=== PATIENT | female | born 1980 | race Caucasian/White ===

== ENCOUNTER 2017-07-17 17:14 | Emergency (ER) | payer OTHER ==
[~2017-07-17] VITALS: Ht 167.6 cm; Wt 139.3 kg
[~2017-07-17 17:14] MED LIST: ADVIN50050 INH; ALBUAER2 INH; CLX20 PO; DOXEPIN PO; FLX10 PO; GABA1CAP5 PO; METO25TA56 PO; PROM25TA PO; QUET1TAB34 PO; SYN125 PO
[2017-07-17 17:19] VITALS: TEMP 36.4; Ht 167.6 cm; Wt 139.3 kg
--- NOTE | 2017-07-17 18:07 | DIAGNOSTIC IMAGING REPORT ---
ABD/PELVIS NO IV OR ORAL CONT CT DOSE: 1118.87 mGycm HISTORY: Flank pain r flank pain TECHNIQUE: Multiaxial CT images of the abdomen and pelvis were performed without contrast. A dose lowering technique was utilized adhering to the principles of ALARA. COMPARISON STUDY: 10/27/2011 FINDINGS: Lung bases are clear. Mild stable hepatomegaly. Prior cholecystectomy. Spleen is uniform. Kidneys negative for calcification or hydronephrosis. The bowel pattern is nonobstructive. Prior appendectomy. Improved postoperative scar tissue of the periumbilical and lower anterior abdominal region. No significant free fluid within the abdomen or pelvis. Prior complete hysterectomy. IMPRESSION: No significant abnormality identified within the abdomen or pelvis. Mild stable hepatomegaly. No evidence for an obstructing urinary tract calculus. The above report was generated using voice recognition software. It may contain grammatical, syntax or spelling errors. Electronically signed by: Anjel Mckee M.D. 07/17/2017 6:06 PM Dictated Date/Time: 07/17/2017 6:01 PM
[2017-07-17] MEDS ORDERED: SYN175 PO (18:14)
[2017-07-17] MEDS ORDERED: VNTHFA/IN INH (18:14)
[2017-07-17] MEDS ORDERED: ADVIN50050 PO (18:14)
[2017-07-17] MEDS ORDERED: ZOLP10TA PO (18:14)
[2017-07-17 18:52] LABS: BASO % 0.5 %; BASO ABS # 0.06 K/uL (0-0.2); COMPLETE YES; EOS % 2.4 %; HEMATOCRIT 40.3 % (37-47); IG% 0.5 %; LYMPH % 34.4 %; LYMPH ABS # 3.79 K/uL (1.2-3.4); MEAN CELL VOLUME 85.7 fL (80-100); MEAN CORPUSCULAR HEMOGLOBIN 28.1 pg (25-34); MEAN CORPUSCULAR HGB CONC 32.8 g/dl (32-36); MEAN PLATELET VOLUME 9.7 fL (7.4-10.4); MONO % 8.1 %; NEUT % 54.1 %; PLATELET COUNT 395 K/uL (130-400); WHITE BLOOD COUNT 11.03 K/uL (4.8-10.8)
[2017-07-17 18:58] LABS: MANUAL MICROSCOPIC REQUIRED? NO; REVIEW REQ? NO; URINE APPEARANCE CLEAR (CLEAR); URINE BILIRUBIN NEG (NEG); URINE COLOR YELLOW; URINE EPITHELIAL CELL AUTO >30 /lpf (0-5); URINE NITRITE NEG (NEG); URINE SPECIFIC GRAVITY 1.028 (1.000-1.030); UROBILINOGEN NEG (NEG); ZZUR CULT IF INDIC CLEAN CATCH NO
[2017-07-17 19:00] VITALS: BP 134/91; PULSE 70; O2SAT 96
[2017-07-17 19:15] LABS: ALT/SGPT 17 U/L (12-78); BLOOD UREA NITROGEN 23 mg/dl (7-18); BUN/CREATININE RATIO 26.6 (10-20); CALCIUM 9.3 mg/dl (8.5-10.1); CARBON DIOXIDE 23 mmol/L (21-32); CHLORIDE 104 mmol/L (98-107); CREATININE 0.86 mg/dl (0.60-1.20); GLUCOSE 77 mg/dl (70-99); SODIUM 135 mmol/L (136-145)
[2017-07-17 19:18] LABS: ALKALINE PHOSPHATASE 95 U/L (45-117); AST/SGOT 10 U/L (15-37)
--- NOTE | 2017-07-17 20:21 | EMERGENCY ROOM VISIT NOTE ---
History Report prepared by Nidhi: Lv Jimenes Under the Supervision of: Dr. Yayo Gutierrez D.O. First contact with patient: 17:24 Chief Complaint: FLANK PAIN Stated Complaint: RT SIDE PAIN,VOMITING History of Present Illness The patient is a 37 year old female who presents to the Emergency Room with complaints of right sided flank pain that began early this morning. She rates her pain an 8/10 in severity started this morning at 4 AM. She has a past medical history of kidney stones, a hysterectomy, a cholecystectomy, and an appendectomy. She is also experiencing nausea, vomiting, and burning with urination. Pt denies headache, change in vision, fevers, chest pain, shortness of breath, diarrhea, gross blood in her urine, and melena. She was last here in the ED for flank pain in 2010. The patient states that her friend brought her to [facility] because she called [facility] and they told her that they were "full." She agreed to have the [facility] records reviewed. Per those records, the patient was at [facility] today at 13:35 for knee pain. Source of History: patient Onset: earlier this morning Position: other (Right flank) Symptom Intensity: 8/10 Quality: sharp Timing: constant Associated Symptoms: + nausea, + vomiting, + urinary symptoms, No fevers, No headache, No chest pain, No SOB, No melena, No diarrhea Review of Systems See HPI for pertinent positives & negatives. A total of 10 systems reviewed and were otherwise negative. Past Medical & Surgical Medical Problems: (1) Kidney stones Surgical Problems: (1) H/O: hysterectomy (2) History of appendectomy (3) Hx of cholecystectomy Family History Patient reports no known family medical history. Social History Smoking Status: Never Smoker Smokeless Tobacco Use: No Alcohol Use: none Drug Use: none Occupation Status: disabled Current/Historical Medications Scheduled Albuterol Hfa (Ventolin Hfa), 2-4 PUFFS INH Q6H Fluticasone Prop/Salmeterol (Advair Diskus 500-50 Mcg/Dose), 1 PUFF PO BID Levothyroxine Sodium (Synthroid), 175 MCG PO QAM Zolpidem Tartrate (Ambien), 10 MG PO HS Allergies Coded Allergies: Morphine (Verified Allergy, Severe, HIVES,SOB, 1/5/11) TAKES PERCOCET AT HOME Ibuprofen (Verified Allergy, Intermediate, HIVES, 11/10/10) Ketorolac (Unverified Allergy, Mild, SWELLING, 11/10/10) Prochlorperazine (Verified Allergy, Mild, RASH, 11/10/10) Quinolones (Verified Allergy, Unknown, 11/10/10) Physical Exam Vital Signs Date Time Temp Pulse Resp B/P (MAP) Pulse Ox O2 Delivery O2 Flow Rate FiO2 07/17/17 19:00 70 20 134/91 96 Room Air 07/17/17 17:19 36.4 73 20 146/77 93 Room Air Physical Exam GENERAL: alert, disheveled and unkempt appearing, no distress, non-toxic EYE EXAM: normal conjunctiva OROPHARYNX: no exudate, no erythema, lips, buccal mucosa, and tongue normal and mucous membranes are moist NECK: supple, no nuchal rigidity, no adenopathy, non-tender LUNGS: Clear to auscultation. Normal chest wall mechanics HEART: no murmurs, S1 normal and S2 normal ABDOMEN: abdomen soft, non-tender, normo-active bowel sounds, no masses, no rebound or guarding. BACK: Back is symmetrical on inspection and there is no deformity, no midline tenderness, no CVA tenderness. SKIN: no rashes and no bruising UPPER EXTREMITIES: upper extremities are grossly normal. LOWER EXTREMITIES: No pitting edema. NEURO EXAM: Normal sensorium, cranial nerves II-XII grossly intact, normal speech, no gross weakness of arms, no gross weakness of legs. Medical Decision & Procedures ER Provider Diagnostic Interpretation: Radiology results as stated below per my review and the radiologist's interpretation: ABD/PELVIS NO IV OR ORAL CONT CT DOSE: 1118.87 mGycm HISTORY: Flank pain r flank pain TECHNIQUE: Multiaxial CT images of the abdomen and pelvis were performed without contrast. A dose lowering technique was utilized adhering to the principles of ALARA. COMPARISON STUDY: 10/27/2011 FINDINGS: Lung bases are clear. Mild stable hepatomegaly. Prior cholecystectomy. Spleen is uniform. Kidneys negative for calcification or hydronephrosis. The bowel pattern is nonobstructive. Prior appendectomy. Improved postoperative scar tissue of the periumbilical and lower anterior abdominal region. No significant free fluid within the abdomen or pelvis. Prior complete hysterectomy. IMPRESSION: No significant abnormality identified within the abdomen or pelvis. Mild stable hepatomegaly. No evidence for an obstructing urinary tract calculus. The above report was generated using voice recognition software. It may contain grammatical, syntax or spelling errors. Electronically signed by: Anjel Mckee M.D. 07/17/2017 6:06 PM Dictated Date/Time: 07/17/2017 6:01 PM Laboratory Results 07/17/17 18:42 Red Blood Count 4.70, Mean Corpuscular Volume 85.7, Mean Corpuscular Hemoglobin 28.1, Mean Corpuscular Hemoglobin Concent 32.8, Mean Platelet Volume 9.7, Neutrophils (%) (Auto) 54.1, Lymphocytes (%) (Auto) 34.4, Monocytes (%) (Auto) 8.1, Eosinophils (%) (Auto) 2.4, Basophils (%) (Auto) 0.5, Neutrophils # (Auto) 5.98, Lymphocytes # (Auto) 3.79, Monocytes # (Auto) 0.89, Eosinophils # (Auto) 0.26, Basophils # (Auto) 0.06 07/17/17 18:42 Test 07/17/17 17:50 07/17/17 18:42 Urine Color YELLOW Urine Appearance CLEAR (CLEAR) Urine pH 5.0 (4.5-7.5) Urine Specific [place] 1.028 (1.000-1.030) Urine Protein NEG (NEG) Urine Glucose (UA) NEG (NEG) Urine Ketones NEG (NEG) Urine Occult Blood 3+ (NEG) Urine Nitrite NEG (NEG) Urine Bilirubin NEG (NEG) Urine Urobilinogen NEG (NEG) Urine Leukocyte Esterase NEG (NEG) Urine WBC (Auto) 1-5 /hpf (0-5) Urine RBC (Auto) >30 /hpf (0-4) Urine Hyaline Casts (Auto) 1-5 /lpf (0-5) Urine Epithelial Cells (Auto) >30 /lpf (0-5) Urine Bacteria (Auto) NEG (NEG) Urine Test NEG (NEG) White Blood Count 11.03 K/uL (4.8-10.8) Red Blood Count 4.70 M/uL (4.2-5.4) Hemoglobin 13.2 g/dL (12.0-16.0) Hematocrit 40.3 % (37-47) Mean Corpuscular Volume 85.7 fL (80-100) Mean Corpuscular Hemoglobin 28.1 pg (25-34) Mean Corpuscular Hemoglobin Concent 32.8 g/dl (32-36) Platelet Count 395 K/uL (130-400) Mean Platelet Volume 9.7 fL (7.4-10.4) Neutrophils (%) (Auto) 54.1 % Lymphocytes (%) (Auto) 34.4 % Monocytes (%) (Auto) 8.1 % Eosinophils (%) (Auto) 2.4 % Basophils (%) (Auto) 0.5 % Neutrophils # (Auto) 5.98 K/uL (1.4-6.5) Lymphocytes # (Auto) 3.79 K/uL (1.2-3.4) Monocytes # (Auto) 0.89 K/uL (0.11-0.59) Eosinophils # (Auto) 0.26 K/uL (0-0.5) Basophils # (Auto) 0.06 K/uL (0-0.2) RDW Standard Deviation 43.4 fL (36.4-46.3) RDW Coefficient of Variation 13.9 % (11.5-14.5) Immature Granulocyte % (Auto) 0.5 % Immature Granulocyte # (Auto) 0.05 K/uL (0.00-0.02) Anion Gap 8.0 mmol/L (3-11) Est Creatinine Clear Calc Drug Dose 129.1 ml/min Estimated GFR () 100.0 Estimated GFR (Non- 86.3 BUN/Creatinine Ratio 26.6 (10-20) Calcium Level 9.3 mg/dl (8.5-10.1) Total Bilirubin 0.4 mg/dl (0.2-1) Direct Bilirubin < 0.1 mg/dl (0-0.2) Aspartate Amino Transf (AST/SGOT) 10 U/L (15-37) Alanine Aminotransferase (ALT/SGPT) 17 U/L (12-78) Alkaline Phosphatase 95 U/L (45-117) Total Protein 8.3 gm/dl (6.4-8.2) Albumin 4.0 gm/dl (3.4-5.0) Lipase 86 U/L (73-393) Laboratory results per my review. ED Course ED COURSE: Vital signs were reviewed and showed hypertension. The patients medical record was reviewed The above diagnostic studies were performed and reviewed. ED treatments and interventions as stated above. 1724: The patient was evaluated in room A11. A complete history and physical examination was performed. 1808: The patient is resting in no distress. 1813: She does not want any Tylenol for her pain. 1922: Upon reevaluation, the patient is resting. I discussed my findings with the patient and she understands and agrees with the treatment plan. Based on the patients age, coexisting illnesses, exam and lab findings the decision to treat as an outpatient was made. The patient remained stable while under my care. The patient appeared well at the time of discharge. Medical Decision Differential diagnoses includes but is not limited to gastritis, peptic ulcer disease, GERD, gallbladder disease, pancreatitis, small bowel obstruction, acute coronary syndrome, pericarditis, ischemic bowel, irritable bowel disease, irritable bowel syndrome, appendicitis, diverticulitis, malignancy, hernia, urinary tract infection, torsion, perforation, trauma, infectious. Patient is a 37-year-old female that presents to ER for right flank pain associated with nausea. On exam she is sitting up in bed comfortable when observing her from outside the room. When I enter the room she is rocking back and forth in pain. She is on the narcotics list. She clearly stated that she came here instead of [facility] because [facility] was busy and she was unable to get in to be seen when she called down there. Her story did not make sense. She normally does go to [facility]. I did ask her if we could review her records from [facility], and she was agreeable. She closed stated to me that her pain started at 4 AM this morning and has been worsening. [facility] records show she was there 1300 today for knee pain. There is no mention of any flank pain or nausea vomiting which is present all day per Pt. I do believe that she is actively trying to deceive me. CT noncontrast was performed and was unremarkable. CBC along with BMP, LFTs, bilirubin and lipase is unremarkable. UA did show mild hematuria. was negative. She has a previous cholecystectomy, appendectomy and complete hysterectomy. I updated the patient in regards to these findings. She was discharged follow-up with PCP for right flank pain with a negative CT. She may have recently passed a stone faint hematuria although I do favor this is unlikely based on her history and presentation. At either rate I felt very uncomfortable prescribing her narcotics at this time. Discussed with Pt concerning signs and symptoms to watch out for. Pt was instructed to follow up with their PCP and discussed with the patient their option to return to the ED at anytime for persistent or worsening symptoms. The appropriate anticipatory guidance and out-patient management, including indications for return to the emergency department, were explained at length to the patient and understood. Medication Reconcilliation Current Medication List: was personally reviewed by me Blood Pressure Screening Patient's blood pressure: Elevated blood pressure Blood pressure disposition: Elevated BP felt to be situational Impression Primary Impression: Right flank pain Scribe Attestation The scribe's documentation has been prepared under my direction and personally reviewed by me in its entirety. I confirm that the note above accurately reflects all work, treatment, procedures, and medical decision making performed by me. Departure Information Dispostion Home / Self-Care Referrals No Doctor, Assigned (PCP) Forms HOME CARE DOCUMENTATION FORM, IMPORTANT VISIT INFORMATION Patient Instructions ED Flank Pain Uncertain Cause, My [facility] Additional Instructions Please follow up with your primary care doctor with in the next 24 hours. Any worsening of your symptoms, please return to the ED immediately. This includes any fevers greater than 100.4, worsening pain, chest pain, shortness breath, persistent nausea, vomiting, unable to eat or drink, or any other concerning signs or symptoms from your standpoint.
== END 2017-07-17 19:30 | disposition home or self-care (01) ==
LOC: C.EDB 17:16 → C.EDA 19:30
DX: R10.30 Lower abdominal pain, unspecified (principal); Z87.440 Personal history of urinary (tract) infections; Z90.710 Acquired absence of both cervix and uterus; Z90.49 Acquired absence of other specified parts of digestive tract; Z79.899 Other long term (current) drug therapy

== ENCOUNTER 2019-02-06 16:14 | Inpatient (IN) ==
[2019-02-06] MEDS ORDERED: ALUMINUM/MAGNESIUM SUSP 30 ML UDC PO PRN (16:17)
[2019-02-06] MEDS ORDERED: MAGNESIUM HYDROXIDE SUSP 30 ML UDC PO PRN (16:17)
[2019-02-06] MEDS ORDERED: ACETAMINOPHEN 325 MG TAB PO PRN (16:17)
[2019-02-06] MEDS ORDERED: SODIUM CHLORIDE 0.65% NA SOLN 45 ML (OCEAN) PRN (16:17)
[2019-02-06] MEDS ORDERED: BENZONATATE 100 MG CAPSULE PO PRN (16:36)
[2019-02-06] MEDS: ALBUTEROL HFA 8 GM INHALER INH SCH ×2 (18:08→21:23)
[2019-02-06] MEDS: OXYCODONE/ACETAMINOPHEN 5mg/325mg TAB PO PRN (20:41)
[2019-02-06 20:45] LABS: Basophils # (auto) 0.02 K/uL (0-0.2); Basophils % (auto) 0.2 %; Eosinophils # (auto) 0.01 K/uL (0-0.5); Eosinophils % (auto) 0.1 %; Hematocrit (blood only) 40.6 % (37-47); Hemoglobin 13.6 g/dL (12.0-16.0); Immature Granulocytes % (auto) 0.9 %; Lymphocytes # (auto) 2.03 K/uL (1.2-3.4); Mean Corpuscular Hgb Conc 33.5 g/dL (32-36); Mean Platelet Volume 9.4 fL (7.4-10.4); Monocytes # (auto) 0.67 K/uL (0.11-0.59); Neutrophils # (auto) 8.42 K/uL (1.4-6.5); Neutrophils % (auto) 74.8 %; Platelet Count 352 K/uL (130-400); RDW Coefficient of Variation 14.6 % (11.5-14.5); RDW Standard Deviation 44.4 fL (36.4-46.3); Red Blood Count 4.89 M/uL (4.2-5.4); White Blood Count 11.25 K/uL (4.8-10.8)
[2019-02-06] MEDS ORDERED: FLUTICASONE HFA 220 MCG INHALER INH SCH (21:00)
[2019-02-06 21:04] LABS: Albumin Level 3.8 gm/dl (3.4-5.0); BUN Creatinine Ratio 18.8 (10-20); Calcium 9.6 mg/dl (8.5-10.1); Creatinine Clr Calc Pharmacy 100.1 ml/min; Est GFR (African American) 65.9; Est GFR (Non-African American) 56.9; Potassium 4.3 mmol/L (3.5-5.1)
[2019-02-06 21:07] LABS: Albumin Globulin Ratio 0.8 (0.9-2); Bilirubin,Total 0.3 mg/dl (0.2-1); Total Protein 8.8 gm/dl (6.4-8.2)
[2019-02-06] MEDS: NYSTATIN POWDER 15GM BTL EXT SCH (21:20)
[2019-02-06] MEDS: GABAPENTIN 800 MG TAB PO SCH (21:21)
[2019-02-06] MEDS: LABETALOL HCL 100 MG TAB PO SCH (21:21)
[2019-02-06] MEDS: CHLORPROMAZINE HCL 25 MG TABLET PO SCH (21:23)
[2019-02-06] MEDS: ROPINIROLE HCL 0.25 MG TABLET PO SCH (21:23)
[2019-02-06] MEDS: OLANZapine 20 MG TABLET PO SCH (21:24)
[2019-02-06] MEDS: OLANZapine 5 MG TABLET PO SCH (21:24)
--- NOTE | 2019-02-06 21:34 | CT Scan Report ---
CT OF THE ABDOMEN AND PELVIS WITHOUT CONTRAST CLINICAL HISTORY: Right flank pain. COMPARISON STUDY: CT of the abdomen and pelvis July 17, 2017. TECHNIQUE: Axial images of the abdomen and pelvis were obtained without IV contrast. Images were revi ewed in the axial, sagittal, and coronal planes. Automated exposure control was utilized for the kimberli dy. A dose lowering technique was utilized adhering to the principles of ALARA. FINDINGS: Groundglass opacities with mosaic attenuation is noted within the lower lungs. Fatty infilt ration of the liver is noted. There is no biliary ductal dilatation status post cholecystectomy. Unen hanced images of the spleen, adrenal glands and pancreas are unremarkable. There is a splenule. There is no peripancreatic infiltration. No renal, ureteral or bladder calculi are identified. There is no hydronephrosis or hydroureter. There is no evidence for a bowel obstruction. Caliber of small and la rge bowel is normal. The appendix is not visualized. No pneumatosis, free air or portal venous gas is present. No suspicious osseous lesions are identified. IMPRESSION: 1. No urinary calculi or hydronephrosis. 2. Fatty infiltration of liver. 3. No bowel obstruction. Electronically signed by: Rakesh Pearson M.D. 02/06/2019 9:33 PM
[2019-02-06 22:18] LABS: Appearance Urine Cloudy (Clear); Bacteria Urine Automated 1+ (Negative); Bilirubin Urine Negative (Negative); Blood Urine 3+ (Negative); Color Urine Yellow; Epithelial Cell Urine Auto >30 /lpf (0-5); Glucose Urine UA Negative (Negative); Ketones Urine Trace (Negative); Leukocyte Esterase Urine Negative (Negative); Nitrite Urine Negative (Negative); Protein Urine Negative (Negative); RBC Urine Automated >30 /hpf (0-4); Specific Gravity Urine 1.033 (1.000-1.030); Urobilinogen Urine Negative (Negative)
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
[2019-02-07] MEDS: GABAPENTIN 800 MG TAB PO SCH ×3 (08:34→21:15)
[2019-02-07] MEDS: LEVOTHYROXINE SODIUM 200 MCG TABLET PO SCH (08:34)
[2019-02-07] MEDS: ROPINIROLE HCL 0.25 MG TABLET PO SCH ×3 (08:35→21:15)
[2019-02-07] MEDS: AMLODIPINE BESYLATE 5 MG TAB PO SCH (08:35)
[2019-02-07] MEDS: FLUOXETINE HCL 20 MG CAP PO SCH (08:35)
[2019-02-07] MEDS: CHLORPROMAZINE HCL 25 MG TABLET PO SCH ×3 (08:35→21:16)
[2019-02-07] MEDS: CHOLECALCIFEROL 1,000 UNITS TAB PO SCH (08:35)
[2019-02-07] MEDS: LABETALOL HCL 100 MG TAB PO SCH ×2 (08:36→21:15)
[2019-02-07] MEDS: ARNUITY ELLIPTA INH SCH (08:36)
[2019-02-07] MEDS: ALBUTEROL HFA 8 GM INHALER INH SCH ×4 (08:36→21:16)
[2019-02-07] MEDS: NYSTATIN POWDER 15GM BTL EXT SCH ×2 (08:37→21:15)
--- NOTE | 2019-02-07 08:48 | Consultation Report ---
DATE OF CONSULTATION: 02/06/2019 CHIEF COMPLAINT: Right flank pain. HISTORY OF PRESENT ILLNESS: This is a 39-year-old female with past medical history significant for hypothyroidism, hyperlipidemia, sleep apnea, asthma, hypertension, obesity, GERD, history of renal calculi, history of UTI, chronic pain of right knee, history of seizures, lumbago, depression, anxiety, bipolar disorder, schizoaffective disorder, noncompliant with medication, history of suicidal ideation, was transferred from [facility] because of suicidal ideation to the mental health unit. At [facility], she complained of left lower extremity pain where Doppler was negative for DVT and left knee x-rays were okay. After coming here, she complained of right flank pain radiate to groins, severe in nature, also has some mild hematuria, says she is feeling chilly. Denies any fever, denies any headache, no blurred vision, no cough, no nausea, no vomiting, no chest pain or shortness of breath. No abdominal pain. Normal bowel movements. The pain in the legs is improved. ALLERGIES: MORPHINE, IBUPROFEN, PROCHLORPERAZINE, QUINOLONES, TRAMADOL, TROMETHAMINE, KETOROLAC. PAST MEDICAL HISTORY: As mentioned above. PAST SURGICAL HISTORY: Colonoscopy, cystourethroscopy with lithotripsy, cystoscopy with stent placement, EGDs, implantation of mesh for incisional hernia, knee arthroscopy, ligation of oviduct, partial hysterectomy, removal of tunneled catheter, repair of incisional hernia, repair of inguinal hernia, repair of the right collateral knee ligament. MEDICATIONS: The patient is on albuterol 2 puffs q.i.d., amlodipine 5 mg p.o. daily, Tessalon Perles 100 mg p.o. t.i.d., chlorpromazine 50 mg p.o. t.i.d., vitamin D 2000 units p.o. daily, Prozac 40 mg p.o. daily, Flovent Diskus one inhalation b.i.d., gabapentin 800 mg p.o. t.i.d., hydroxyzine 50 mg p.o. t.i.d., labetalol 100 mg p.o. b.i.d., levothyroxine 200 mg p.o. daily, midodrine 5 mg p.o. at bedtime p.r.n., Nystatin topical, Zyprexa 5 mg p.o. at bedtime, Zyprexa 20 mg p.o. at bedtime, Requip 0.25 mg p.o. t.i.d. FAMILY HISTORY: Significant for mother has diabetes, stroke. Daughter has asthma, ADHD. Maternal grandfather polycythemia . Maternal grandmother, stroke and diabetes. SOCIAL HISTORY: . No smoking. No alcohol, no drug use, history of pain medication abuse. REVIEW OF SYMPTOMS: As per HPI. Rest of review of systems negative. PHYSICAL EXAMINATION: GENERAL: The patient is morbidly obese, not in acute distress. VITAL SIGNS: Temperature 37, pulse 65, blood pressure 146/77. HEENT: No pallor, no icterus. NECK: No JVD, no neck masses, no carotid bruits. CARDIOVASCULAR: S1, S2 heard, regular rate and rhythm, no murmur, no gallop. RESPIRATORY SYSTEM: Normal AP diameter. No accessory muscle use. No wheezing, no crackles. ABDOMEN: Soft, bowel sounds present. Right CVA tenderness present. No guarding, no rigidity. CENTRAL NERVOUS SYSTEM: Cranial nerves II-XII grossly intact. Nonfocal. EXTREMITIES: No edema seen. LABORATORIES: WBC 11.2, hemoglobin 13.6, hematocrit 40.6, platelets 352. Sodium 140, potassium 4.3, chloride 105, bicarbonate 27, BUN 23, creatinine 1.2, serum glucose 151, calcium 9.6, total bilirubin 0.3. AST 28, ALT 14, alkaline phosphatase is 101. Urinalysis: Urine blood 3+, nitrite and leukocyte esterase negative. CT of abdomen and pelvis without contrast, no urinary calculi, hydronephrosis, fatty infiltration of the liver. No bowel obstruction. ASSESSMENT AND PLAN: This 39-year-old female was admitted for suicidal ideation to mental unit, complains of right flank pain and hematuria. 1. Right flank pain, and complaints of mild hematuria. Urinalysis positive for blood, but no obvious infections seen. CT of the abdomen and pelvis without contrast shows no urinary stones or hydronephrosis. We will place on Percocet p.r.n. for now and monitor, if continues to have hematuria, we will consider consulting Urology. We will monitor for now. 2. History of depression, anxiety and bipolar disorder, schizoaffective disorder, suicidal thoughts. Management as per Psychiatry. 3. Hypertension. Continue his labetalol and amlodipine. Monitor the blood pressure. 4. History hypothyroidism, continue Synthroid. 5. History of restless leg syndrome, continue Requip. DISPOSITION: As per Psychiatry. MTDD
[2019-02-07] MEDS: OXYCODONE/ACETAMINOPHEN 5mg/325mg TAB PO PRN ×2 (13:02→21:13)
--- NOTE | 2019-02-07 18:05 | Hospitalist Progress Note ---
Date of Service February 07, 2019 Assessment & Plan (1) Right flank pain: Complaints of dysuria-likely secondary to UTI UA suggestive of infection CT scan of the abdomen and pelvis is negative for any hydronephrosis or any stone in the renal system Urine has been sent for culture Will start oral Keflex (2) Schizoaffective disorder, bipolar type: Management as per psych (3) Restless leg syndrome: Denies any problem with (4) Hypertension: Continue current blood pressure medication Seems to be controlled (5) Hypothyroidism: (6) Suicidal ideation: Management as per psych Subjective 02/07 The patient was seen and examined in the psychiatric unit She has schizoaffective disorder, bipolar disorder and has been admitted to psychiatric unit Medicine service is consulted for right flank pain He complains to have dysuria as well Physical Exam Vital Signs (Past 24 Hours): Last Vital Signs Temp 36.6 C 02/07/19 06:52 Pulse 118 H 02/07/19 06:54 Resp 18 02/07/19 06:52 BP 128/85 02/07/19 06:54 Physical Exam: Sitting on a chair without any symptoms Constitutional: + obese Eyes: PERRL, conjunctivae normal, anicteric sclerae ENMT: external ear and nose normal, oropharynx normal Neck: trachea midline, no thyromegaly Respiratory: normal respiratory effort Auscultation: + diminished lung sounds; no crackles and no wheezes Cardiovascular: Rate/Rhythm: regular rate and regular rhythm Heart Sounds: normal S1 and normal S2 Gastrointestinal (Abdomen): Inspection/Auscultation: abdomen normal to inspection and + abdomen distended Percussion/Palpation: abdomen soft; abdomen nontender Renal angles when not tender Neurologic: PERRL, EOMI, accommodation nl, no face palsy, no dysarthria Results & Data Laboratory Results Short CBC 02/06/19 Range/Units 20:21 WBC 11.25 H (4.8-10.8) K/uL Hgb 13.6 (12.0-16.0) g/dL Hct 40.6 (37-47) % Plt Count 352 (130-400) K/uL BMP 02/06/19 20:21 Sodium 140 Potassium 4.3 Chloride 105 Carbon Dioxide 27 BUN 23 H Creatinine 1.20 Glucose 151 H Calcium 9.6 Liver Function 02/06/19 Range/Units 20:21 Total Bilirubin 0.3 (0.2-1) mg/dl AST 28 (15-37) U/L ALT 48 (12-78) U/L Alkaline Phosphatase 101 (45-117) U/L Albumin 3.8 (3.4-5.0) gm/dl Urine 02/06/19 Range/Units 21:30 Urine Color Yellow Urine Appearance Cloudy H (Clear) Urine pH 6.0 (4.5-7.5) Ur Specific [place] 1.033 H (1.000-1.030) Urine Protein Negative (Negative) Urine Glucose (UA) Negative (Negative) Medications Administered Current Inpatient Medications Acetaminophen (Tylenol) 650 mg PO Q4H PRN PRN Reason: Headache or Minor Fever Stop: 03/08/19 16:16 Al Hydrox/Mg Hydrox/Simethicone (Maalox) 30 ml PO Q4H PRN PRN Reason: GI Upset Stop: 03/08/19 16:16 Albuterol (Ventolin Hfa) 2 puffs INH QID [facility] Stop: 03/08/19 16:59 Last Admin: 02/07/19 17:27 Dose: 2 puffs Documented by: Amlodipine Besylate (Norvasc) 5 mg PO DAILY [facility] Stop: 03/09/19 08:59 Last Admin: 02/07/19 08:35 Dose: 5 mg Documented by: Benzonatate (Tessalon Perle) 100 mg PO TID PRN PRN Reason: Cough Stop: 03/08/19 16:35 Cephalexin HCl (Keflex) 500 mg PO TID [facility] Stop: 02/12/19 20:59 Chlorpromazine HCl (Thorazine) 50 mg PO TID [facility] Stop: 03/08/19 20:59 Last Admin: 02/07/19 13:02 Dose: 50 mg Documented by: Fluoxetine HCl (Prozac) 40 mg PO DAILY [facility] Stop: 03/09/19 08:59 Last Admin: 02/07/19 08:35 Dose: 40 mg Documented by: Gabapentin (Neurontin) 800 mg PO TID [facility] Stop: 03/08/19 20:59 Last Admin: 02/07/19 13:02 Dose: 800 mg Documented by: Hydroxyzine HCl (Vistaril) 50 mg PO HSZ PRN PRN Reason: Insomnia Stop: 05/03/19 16:16 Hydroxyzine HCl (Vistaril) 50 mg PO TID [facility] Stop: 03/08/19 20:59 Last Admin: 02/07/19 13:02 Dose: 50 mg Documented by: Labetalol HCl (Normodyne) 100 mg PO BID [facility] Stop: 03/08/19 20:59 Last Admin: 02/07/19 08:36 Dose: 100 mg Documented by: Levothyroxine Sodium (Synthroid) 200 mcg PO DAILYBB [facility] Stop: 03/09/19 07:59 Last Admin: 02/07/19 08:34 Dose: 200 mcg Documented by: Magnesium Hydroxide (Milk Of Magnesia) 30 ml PO DAILY PRN PRN Reason: Heartburn Stop: 03/08/19 16:16 Arnuity Ellipta: Non -Formulary Patient's Own Med 1 ea INH DAILY [facility] Stop: 03/09/19 08:59 Last Admin: 02/07/19 08:36 Dose: 1 puffs Documented by: Nystatin (Mycostatin) 1 appln EXT BID [facility] Stop: 03/08/19 20:59 Olanzapine (Zyprexa) 5 mg PO HS [facility] Stop: 03/08/19 21:59 Last Admin: 02/06/19 21:24 Dose: 5 mg Documented by: Olanzapine (Zyprexa) 20 mg PO HS [facility] Stop: 03/08/19 21:59 Last Admin: 02/06/19 21:24 Dose: 20 mg Documented by: Oxycodone/Acetaminophen (Percocet 5mg/325mg) 1 tab PO Q6H PRN PRN Reason: Pain Stop: 02/20/19 20:08 Last Admin: 02/07/19 13:02 Dose: 1 tab Documented by: Ropinirole HCl (Requip) 0.25 mg PO TID [facility] Stop: 03/08/19 20:59 Last Admin: 02/07/19 13:02 Dose: 0.25 mg Documented by: Sodium Chloride (Frio Nasal) 1 - 2 sprays NA PRN PRN PRN Reason: Nasal Dryness/Congestion Stop: 03/08/19 16:16 Vitamin D (Vitamin D3) 2,000 units PO DAILY [facility] Stop: 03/09/19 08:59 Last Admin: 02/07/19 08:35 Dose: 2,000 units Documented by:
[2019-02-07] MEDS: cephALEXin 500 MG CAP PO SCH (21:14)
[2019-02-07] MEDS: OLANZapine 5 MG TABLET PO SCH (21:16)
[2019-02-07] MEDS: OLANZapine 20 MG TABLET PO SCH (21:16)
[2019-02-08 07:32] LABS: Basophils # (auto) 0.02 K/uL (0-0.2); Basophils % (auto) 0.2 %; Eosinophils # (auto) 0.34 K/uL (0-0.5); Eosinophils % (auto) 3.3 %; Hemoglobin 12.9 g/dL (12.0-16.0); Immature Granulocytes # (auto) 0.12 K/uL (0.00-0.02); Immature Granulocytes % (auto) 1.2 %; Lymphocytes # (auto) 2.65 K/uL (1.2-3.4); Lymphocytes % (auto) 25.9 %; Mean Corpuscular Hgb Conc 32.3 g/dL (32-36); Mean Corpuscular Volume 84.9 fL (80-100); Mean Platelet Volume 9.2 fL (7.4-10.4); Monocytes # (auto) 0.95 K/uL (0.11-0.59); Monocytes % (auto) 9.3 %; Neutrophils # (auto) 6.17 K/uL (1.4-6.5); Neutrophils % (auto) 60.1 %; Platelet Count 287 K/uL (130-400); RDW Coefficient of Variation 14.6 % (11.5-14.5); RDW Standard Deviation 45.4 fL (36.4-46.3); Red Blood Count 4.71 M/uL (4.2-5.4); White Blood Count 10.25 K/uL (4.8-10.8)
[2019-02-08 07:59] LABS: Glucose Fasting 140 mg/dl (70-99)
[2019-02-08 08:06] LABS: Chol HDL Ratio 7; Cholesterol 223 mg/dl (0-200); HDL Cholesterol 33 mg/dl; LDL Cholesterol Calculated 132 mg/dl; Triglycerides 291 mg/dl (0-150); VLDL Cholesterol 58 mg/dl
[2019-02-08] MEDS: LEVOTHYROXINE SODIUM 200 MCG TABLET PO SCH (08:39)
[2019-02-08] MEDS: cephALEXin 500 MG CAP PO SCH ×3 (08:39→20:57)
[2019-02-08] MEDS: ARNUITY ELLIPTA INH SCH (08:40)
[2019-02-08] MEDS: LABETALOL HCL 100 MG TAB PO SCH ×2 (08:40→21:00)
[2019-02-08] MEDS: NYSTATIN POWDER 15GM BTL EXT SCH ×2 (08:40→21:05)
[2019-02-08] MEDS: GABAPENTIN 800 MG TAB PO SCH ×3 (08:40→20:58)
[2019-02-08] MEDS: ROPINIROLE HCL 0.25 MG TABLET PO SCH ×3 (08:41→21:00)
[2019-02-08] MEDS: CHLORPROMAZINE HCL 25 MG TABLET PO SCH ×3 (08:41→21:00)
[2019-02-08] MEDS: AMLODIPINE BESYLATE 5 MG TAB PO SCH (08:41)
[2019-02-08] MEDS: FLUOXETINE HCL 20 MG CAP PO SCH (08:41)
[2019-02-08] MEDS: ALBUTEROL HFA 8 GM INHALER INH SCH ×4 (08:41→21:01)
[2019-02-08] MEDS: CHOLECALCIFEROL 1,000 UNITS TAB PO SCH (08:42)
[2019-02-08] MEDS: OXYCODONE/ACETAMINOPHEN 5mg/325mg TAB PO PRN ×2 (08:42→21:51)
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
[2019-02-08] MEDS ORDERED: OLANZapine 5 MG TABLET PO ONE (16:01)
[2019-02-08] MEDS: METFORMIN HCL 500 MG TAB PO SCH (18:19)
[2019-02-08] MEDS: OLANZapine 20 MG TABLET PO SCH (21:02)
[2019-02-09] MEDS: LEVOTHYROXINE SODIUM 200 MCG TABLET PO SCH (08:36)
[2019-02-09] MEDS: TRIHEXYPHENIDYL HCL 2 MG TAB PO SCH (08:39)
[2019-02-09] MEDS: cephALEXin 500 MG CAP PO SCH ×3 (08:40→21:10)
[2019-02-09] MEDS: NYSTATIN POWDER 15GM BTL EXT SCH ×2 (08:40→21:09)
[2019-02-09] MEDS: METFORMIN HCL 500 MG TAB PO SCH ×2 (08:40→17:32)
[2019-02-09] MEDS: ARNUITY ELLIPTA INH SCH (08:41)
[2019-02-09] MEDS: AMLODIPINE BESYLATE 5 MG TAB PO SCH (08:41)
[2019-02-09] MEDS: GABAPENTIN 800 MG TAB PO SCH ×3 (08:41→21:08)
[2019-02-09] MEDS: CHLORPROMAZINE HCL 25 MG TABLET PO SCH ×3 (08:42→21:06)
[2019-02-09] MEDS: FLUOXETINE HCL 20 MG CAP PO SCH (08:42)
[2019-02-09] MEDS: ROPINIROLE HCL 0.25 MG TABLET PO SCH ×3 (08:42→21:07)
[2019-02-09] MEDS: CHOLECALCIFEROL 1,000 UNITS TAB PO SCH (08:43)
[2019-02-09] MEDS: ALBUTEROL HFA 8 GM INHALER INH SCH ×4 (08:43→21:06)
[2019-02-09] MEDS: OLANZapine 5 MG TABLET PO SCH ×2 (08:44→15:48)
[2019-02-09] MEDS: OXYCODONE/ACETAMINOPHEN 5mg/325mg TAB PO PRN ×2 (08:46→21:02)
[2019-02-09] MEDS: LABETALOL HCL 100 MG TAB PO SCH ×2 (08:49→21:07)
--- NOTE | 2019-02-09 15:11 | Psychiatric Progress Note ---
Date of Service February 09, 2019 Impression / Recommendations Impression This 39-year-old woman with a known diagnosis of schizoaffective disorder, bipolar type, was admitted after she reported thoughts of wanting to be and was found to be at significant risk for suicide. She identifies the recent decision to temporarily suspend her right to have unsupervised visits with her young children as a precipitating event, but also acknowledges that prior to this event she had been deteriorating, in terms of her mental health. She specifically reported that had been neglecting self-care (bathing, grooming, washing clothes, keeping the house clean), and lack of motivation, energy and the ability to experience pleasure. The patient also reported an intensification of her long-standing perceptual disturbances. Specifically, she reported that she began to experience worsening and more frequent auditory hallucinations. She described the voices as being that of a male, but she cannot identify the male. She further reported that the hallucinations are primarily of a derogatory nature and make negative comments about her appearance and her worthiness as a person. Also, the patient says that she has occasionally had "visions" of relatives. Specifically, she has seen "seen" visions of her grandmother, dad and grandfather, and a cousin who was killed in an automobile accident. (1) Suicidal ideation: 02/07 - Admitted to a locked inpatient behavioral health unit, on q15 minute safety checks - Encourage medication initiation/adjustments as indicated - Encourage participation in group and recreational therapies - Gather collateral information from outpatient providers - Suggest family meeting to involve outpatient supports in safety planning - Arrange appropriate aftercare 02/08 -The patient currently denies suicidal ideation. She reports that she was having passive thoughts of / wishes, but did not have any suicidal plan or intent. -The patient acknowledges that she sometimes uses suicide threats as a way of communicating her distress, and we discussed more effective ways of doing this. The patient seemed to be genuinely express understanding and described "shooting [herself] in the foot" in terms of her goal of being able to regain custody of her children. (2) Schizoaffective disorder, bipolar type: 02/07 - Medication history limited due to poor recall, we have requested records from outpatient psychiatrist as well as both recent inpatient facilities to gather collateral information - Reports improvement in hallucinations with increased dose olanzapine during last hospitalization - will continue current dosage; will order fasting labs as none on record - Continue chlorpromazine 50mg TID, fluoxetine 40mg, and hydroxyzine 50mg TID - Gather collateral information from outpatient supports and previous hospital records to guide further medication changes - Assist patient in processing recent stressors - Schedule family meeting with identified outpatient supports - Assist with development of healthy and effective coping strategies 02/08 -The patient notes that her auditory hallucinations have lessened since admission, but continue. -No delusional material was identified and the patient's thought content today. -Because of persistent auditory hallucinations, combined with which she describes as generalized anxietyrelieved in the evenings with her evening dose of Zyprexa (olanzapine) we will change her olanzapine regimen as follows: Olanzapine 5 mg p.o. twice daily and olanzapine 20 mg at bedtime. (3) Right flank pain: 02/07 - Verbalized 10/10 right flank pain overnight, labs and visualization indicate gross hematuria, history of renal calculi. Hospitalist consult req uested and appreciated - CT of abdomen and pelvis performed with no apparent urinary stones or hydronephrosis - Percocet order by hospitalist service prn for ongoing pain - Monitor of ongoing hematuria, Urology consultation may be considered 02/08 - No pain complaint today. PRN pain medication will be continued. (4) Hypothyroidism: 02/07 - Per [facility] ED labs: TSH elevated; Free T4 wnl - Continue home dose of Synthroid (5) Hypertension: 02/07 - Blood pressures stable - Continue home doses of amlodipine and labetalol (6) Restless leg syndrome: 02/07 - Continue home dose of Requip 02/08 -The patient also complains of daytime restlessness and had some trouble sitting still during her encounter with me today. I did not test for cogwheeling, but am wondering about akastisia/EPS. -Trial of Artane 5 mg daily. Material risks and anticipated benefits of Artane were reviewed with the patient, and she indicated understanding. -We are also changing her Zyprexa dose from 25 mg at bedtime to Zyprexa 20 mg at bedtime and 5 mg twice daily in the hopes that this will help address underlying generalized anxiety, as well as auditory hallucinations. (7) Elevated random blood glucose level: 02/07-The patient's fasting blood glucose level was elevated at 140. I met with the patient to advise her of this finding, provide information regarding elevated glucose levels, and make recommendations for addressing it. -The patient tells me that type 2 diabetes runs in her family and that she is "not surprised." -I am recommending that the patient began metformin 500 mg twice a day. Material risks and anticipated benefits of this medication were reviewed with the patient, and she indicated understanding. Inventory Assets Strengths: extensive outpatient psychiatric support, support of mother to care for children Needs: improved condition to regain visitation with children, effective medication regimen Risk Factors Assessment Male: No : Yes Do You Have Access To A Gun?: No Health Problems: Yes Mental Health Diagnoses: Yes Substance Use Disorders: No Previous Attempt: No Family History of Suicide: No Previous Psychiatric Hospitalization: Yes Hopelessness: Yes Smoker: No Protective Factors Assessment Scientology Beliefs: No : No Responsible for Young Children: Yes (children living with their grandmother recently) Employed: No Stable Relationships: No Supportive Family: Yes (though also a large stressor) Good Rapport with Provider: Yes Interval History Chief Complaint "I had some quinonez yesterday but I'm feeling a little better today". Review of Systems Sleep Information Total Hours of Sleep: 7 Sleep Comments: pt NPO during the night. pt on q-15 minute checks Meal Information Percent Meal Consumed - Breakfast: 70 Percent Meal Consumed - Lunch: 95 Percent Meal Consumed - Dinner: 100 Subjective Subjective Patient was seen & assessed and interval progress reviewed with Nursing and social work. Yesterday reported aud quinonez to cut self, states daytime dosing of Zyprexa has been extremely helpful and denies excessive sedation. She denies d ysuria. She states that she has been tested for sleep apnea in the past and was told she doesn't have it, she is also aware of Zyprexa side effects re: blood sugar and weight. She is tolerating addition of metformin and desires to continue her current med plan. She denies any restlessness related to medication. Physical Exam Psychiatric Orientation: alert and oriented x 3 Apperance: appropriately groomed Eye Contact: + fair eye contact Motor Behavior: no abnormal motor movements Speech: normal rate/rhythm/volume of speech Affect: + constricted affect Mood: + depressed mood; no anxious mood Thought Process: + concrete thought process Thought Content: no preoccupation and no delusions Suicidal Thoughts: denies suicidal thoughts Homicidal Thoughts: denies homicidal thoughts Hallucinations: no auditory hallucinations and no visual hallucinations (though states she saw some shadows out of the corner of her eye yesterday.) Cognition: language grossly intact Estimated Intelligence: + below average estimated intelligence Insight: + limited insight Judgement: + limited judgement Vital Signs (Past 24 Hours) Last Vital Signs Temp 36.6 C 02/09/19 07:01 Pulse 91 H 02/09/19 07:03 Resp 20 02/09/19 07:01 BP 140/88 02/09/19 07:03 Results & Data Current Inpatient Medications Current Inpatient Medications: Current Inpatient Medications Acetaminophen (Tylenol) 650 mg PO Q4H PRN PRN Reason: Headache or Minor Fever Stop: 03/08/19 16:16 Al Hydrox/Mg Hydrox/Simethicone (Maalox) 30 ml PO Q4H PRN PRN Reason: GI Upset Stop: 03/08/19 16:16 Albuterol (Ventolin Hfa) 2 puffs INH QID [facility] Stop: 03/08/19 16:59 Last Admin: 02/09/19 13:15 Dose: 2 puffs Documented by: Amlodipine Besylate (Norvasc) 5 mg PO DAILY [facility] Stop: 03/09/19 08:59 Last Admin: 02/09/19 08:41 Dose: 5 mg Documented by: Benzonatate (Tessalon Perle) 100 mg PO TID PRN PRN Reason: Cough Stop: 03/08/19 16:35 Cephalexin HCl (Keflex) 500 mg PO TID [facility] Stop: 02/10/19 09:01 Last Admin: 02/09/19 13:15 Dose: 500 mg Documented by: Chlorpromazine HCl (Thorazine) 50 mg PO TID [facility] Stop: 03/08/19 20:59 Last Admin: 02/09/19 13:16 Dose: 50 mg Documented by: Fluoxetine HCl (Prozac) 40 mg PO DAILY [facility] Stop: 03/09/19 08:59 Last Admin: 02/09/19 08:42 Dose: 40 mg Documented by: Gabapentin (Neurontin) 800 mg PO TID [facility] Stop: 03/08/19 20:59 Last Admin: 02/09/19 13:16 Dose: 800 mg Documented by: Hydroxyzine HCl (Vistaril) 50 mg PO HSZ PRN PRN Reason: Insomnia Stop: 03/08/19 16:16 Hydroxyzine HCl (Vistaril) 50 mg PO TID [facility] Stop: 03/08/19 20:59 Last Admin: 02/09/19 13:16 Dose: 50 mg Documented by: Labetalol HCl (Normodyne) 100 mg PO BID [facility] Stop: 03/08/19 20:59 Last Admin: 02/09/19 08:49 Dose: 100 mg Documented by: Levothyroxine Sodium (Synthroid) 200 mcg PO DAILYBB [facility] Stop: 03/09/19 07:59 Last Admin: 02/09/19 08:36 Dose: 200 mcg Documented by: Magnesium Hydroxide (Milk Of Magnesia) 30 ml PO DAILY PRN PRN Reason: Heartburn Stop: 03/08/19 16:16 Metformin HCl (Glucophage) 500 mg PO BIDM [facility] Stop: 03/10/19 17:44 Last Admin: 02/09/19 08:40 Dose: 500 mg Documented by: Brittany Ellipta: Non -Formulary Patient's Own Med 1 ea INH DAILY [facility] Stop: 03/09/19 08:59 Last Admin: 02/09/19 08:41 Dose: 1 puffs Documented by: Nystatin (Mycostatin) 1 appln EXT BID [facility] Stop: 03/08/19 20:59 Last Admin: 02/09/19 08:40 Dose: 1 appln Documented by: Olanzapine (Zyprexa) 20 mg PO HS [facility] Stop: 03/08/19 21:59 Last Admin: 02/08/19 21:02 Dose: 20 mg Documented by: Olanzapine (Zyprexa) 5 mg PO BID@0900,1600 [facility] Stop: 03/11/19 08:59 Last Admin: 02/09/19 08:44 Dose: 5 mg Documented by: Oxycodone/Acetaminophen (Percocet 5mg/325mg) 1 tab PO Q6H PRN PRN Reason: Pain Stop: 02/20/19 20:08 Last Admin: 02/09/19 08:46 Dose: 1 tab Documented by: Ropinirole HCl (Requip) 0.25 mg PO TID [facility] Stop: 03/08/19 20:59 Last Admin: 02/09/19 13:16 Dose: 0.25 mg Documented by: Sodium Chloride ([place] Nasal) 1 - 2 sprays NA PRN PRN PRN Reason: Nasal Dryness/Congestion Stop: 03/08/19 16:16 Trihexyphenidyl HCl (Artane) 5 mg PO QAM [facility] Stop: 03/11/19 08:59 Last Admin: 02/09/19 08:39 Dose: 5 mg Documented by: Vitamin D (Vitamin D3) 2,000 units PO DAILY [facility] Stop: 03/09/19 08:59 Last Admin: 02/09/19 08:43 Dose: 2,000 units Documented by: Post Discharge Appointments Primary Care Physician Name Of Family Doctor: D[place] Primary Care Provider Appointment Comment: [place] [id number] Psychiatrist Name of Psychiatrist: [facility] - Dr. Rascon (Telepsych) Date of Appointment with Psychiatrist: 02/14/19 Time of Appointment with Psychiatrist: 10:00 a.m. Therapist Name of Therapist: Jose Chemistry Associate Name of Chemistry Associate: Prabhu Pollard Phone Number for Chemistry Associate: Case Management Appointment Comment: [address] [place] [address] Contact Information Discharge Discharge Address: [address] [place] [address] J[place] Allen [address] CPT Code CPT Code 24170
[2019-02-09] MEDS: OLANZapine 20 MG TABLET PO SCH (21:06)
[2019-02-10] MEDS: OXYCODONE/ACETAMINOPHEN 5mg/325mg TAB PO PRN ×2 (08:55→21:07)
[2019-02-10] MEDS: ARNUITY ELLIPTA INH SCH (08:57)
[2019-02-10] MEDS: ALBUTEROL HFA 8 GM INHALER INH SCH ×4 (08:57→21:07)
[2019-02-10] MEDS: TRIHEXYPHENIDYL HCL 2 MG TAB PO SCH (08:58)
[2019-02-10] MEDS: LEVOTHYROXINE SODIUM 200 MCG TABLET PO SCH (08:58)
[2019-02-10] MEDS: METFORMIN HCL 500 MG TAB PO SCH ×2 (08:59→17:33)
[2019-02-10] MEDS: NYSTATIN POWDER 15GM BTL EXT SCH ×2 (09:00→21:05)
[2019-02-10] MEDS: cephALEXin 500 MG CAP PO SCH (09:00)
[2019-02-10] MEDS: GABAPENTIN 800 MG TAB PO SCH ×3 (09:01→21:05)
[2019-02-10] MEDS: AMLODIPINE BESYLATE 5 MG TAB PO SCH (09:01)
[2019-02-10] MEDS: FLUOXETINE HCL 20 MG CAP PO SCH (09:01)
[2019-02-10] MEDS: CHLORPROMAZINE HCL 25 MG TABLET PO SCH ×3 (09:02→21:06)
[2019-02-10] MEDS: ROPINIROLE HCL 0.25 MG TABLET PO SCH ×3 (09:02→21:06)
[2019-02-10] MEDS: CHOLECALCIFEROL 1,000 UNITS TAB PO SCH (09:03)
[2019-02-10] MEDS: OLANZapine 5 MG TABLET PO SCH ×2 (09:04→15:53)
[2019-02-10] MEDS: LABETALOL HCL 100 MG TAB PO SCH ×2 (09:05→21:05)
--- NOTE | 2019-02-10 09:51 | Psychiatric Progress Note ---
Date of Service February 10, 2019 Impression / Recommendations Impression This 39-year-old woman with a known diagnosis of schizoaffective disorder, bipolar type, was admitted after she reported thoughts of wanting to be and was found to be at significant risk for suicide. She identifies the recent decision to temporarily suspend her right to have unsupervised visits with her young children as a precipitating event, but also acknowledges that prior to this event she had been deteriorating, in terms of her mental health. She specifically reported that had been neglecting self-care (bathing, grooming, washing clothes, keeping the house clean), and lack of motivation, energy and the ability to experience pleasure and more frequent auditory hallucinations. (1) Suicidal ideation: 02/07 - Admitted to a locked inpatient behavioral health unit, on q15 minute safety checks - Encourage medication initiation/adjustments as indicated - Encourage participation in group and recreational therapies - Gather collateral information from outpatient providers - Suggest family meeting to involve outpatient supports in safety planning - Arrange appropriate aftercare 5 -The patient currently denies suicidal ideation. She reports that she was having passive thoughts of / wishes, but did not have any suicidal plan or intent. -The patient acknowledges that she sometimes uses suicide threats as a way of communicating her distress, and we discussed more effective ways of doing this. The patient seemed to be genuinely express understanding and described "shooting [herself] in the foot" in terms of her goal of being able to regain custody of her children. (2) Schizoaffective disorder, bipolar type: 02/07 - Medication history limited due to poor recall, we have requested records from outpatient psychiatrist as well as both recent inpatient facilities to gather collateral information - Reports improvement in hallucinations with increased dose olanzapine during last hospitalization - will continue current dosage; will order fasting labs as none on record - Continue chlorpromazine 50mg TID, fluoxetine 40mg, and hydroxyzine 50mg TID - Gather collateral information from outpatient supports and previous hospital records to guide further medication changes - Assist patient in processing recent stressors - Schedule family meeting with identified outpatient supports - Assist with development of healthy and effective coping strategies 45 -The patient notes that her auditory hallucinations have lessened since admission, but continue. -No delusional material was identified and the patient's thought content today. -Because of persistent auditory hallucinations, combined with which she describes as generalized anxietyrelieved in the evenings with her evening dose of Zyprexa (olanzapine) we will change her olanzapine regimen as follows: Olanzapine 5 mg p.o. twice daily and olanzapine 20 mg at bedtime. 02/10--improving, monitor am tachy (3) Right flank pain: 02/07 - Verbalized 10/10 right flank pain overnight, labs and visualization indicate gross hematuria, history of renal calculi. Hospitalist consult requ jeyson and appreciated - CT of abdomen and pelvis performed with no apparent urinary stones or hydronephrosis - Percocet order by hospitalist service prn for ongoing pain - Monitor of ongoing hematuria, Urology consultation may be considered 02/08 - No pain complaint today. PRN pain medication will be continued. (4) Hypothyroidism: 02/07 - Per [facility] ED labs: TSH elevated; Free T4 wnl - Continue home dose of Synthroid (5) Hypertension: 02/07 - Blood pressures stable - Continue home doses of amlodipine and labetalol (6) Restless leg syndrome: 02/07 - Continue home dose of Requip 02/08 -The patient also complains of daytime restlessness and had some trouble s itting still during her encounter with me today. I did not test for cogwheeling, but am wondering about akastisia/EPS. -Trial of Artane 5 mg daily. Material risks and anticipated benefits of Artane were reviewed with the patient, and she indicated understanding. -We are also changing her Zyprexa dose from 25 mg at bedtime to Zyprexa 20 mg at bedtime and 5 mg twice daily in the hopes that this will help address underlying generalized anxiety, as well as auditory hallucinations. (7) Elevated random blood glucose level: 02/07-The patient's fasting blood glucose level was elevated at 140. I met with the patient to advise her of this finding, provide information regarding elevated glucose levels, and make recommendations for addressing it. -The patient tells me that type 2 diabetes runs in her family and that she is "not surprised." -I am recommending that the patient began metformin 500 mg twice a day. Material risks and anticipated benefits of this medication were reviewed with the patient, and she indicated understanding. Inventory Assets Strengths: extensive outpatient psychiatric support, support of mother to care for children Needs: improved condition to regain visitation with children, effective medication regimen Risk Factors Assessment Male: No : Yes Do You Have Access To A Gun?: No Health Problems: Yes Mental Health Diagnoses: Yes Substance Use Disorders: No Previous Attempt: No Family History of Suicide: No Previous Psychiatric Hospitalization: Yes Hopelessness: Yes Smoker: No Protective Factors Assessment Presybeterian Beliefs: No : No Responsible for Young Children: Yes (children living with their grandmother recently) Employed: No Stable Relationships: No Supportive Family: Yes (though also a large stressor) Good Rapport with Provider: Yes Interval History Chief Complaint "I'm feeling much better". Review of Systems Sleep Information Total Hours of Sleep: 6 Sleep Comments: pt NPO during the night. pt on q-15 minute checks Meal Information Percent Meal Consumed - Breakfast: 70 Percent Meal Consumed - Lunch: 95 Percent Meal Consumed - Dinner: 100 Subjective Subjective Patient was seen & assessed and interval progress reviewed with Nursing and child protective services social worker. Staff reports auditory quinonez intermittently but appears improved in interactions and calmer with daytime dose of Zyprexa without sedation. No BM since 02/07 but success with this am. Current CM on leave until 02/14 but confirmed coverage with SW. When asked about quinonez, she stated that when falling asleep she hears things "banging around" and did dream about her grandmother. Physical Exam Psychiatric Orientation: alert, oriented x 3 and cooperative Apperance: appropriately dressed and appropriately groomed Eye Contact: + fair eye contact Motor Behavior: steady gait and station and no abnormal motor movements Speech: normal rate/rhythm/volume of speech Affect: + constricted affect; no anxious affect Mood: + depressed mood; no anxious mood Thought Process: + concrete thought process Thought Content: reality based without delusions; no preoccupation and no delusions Suicidal Thoughts: denies suicidal thoughts, denies suicidal plan and denies suicidal intent Homicidal Thoughts: denies homicidal thoughts Hallucinations: no auditory hallucinations and no visual hallucinations (though states she saw some shadows out of the corner of her eye yesterday.) Cognition: recent memory grossly intact, remote memory grossly intact, attention grossly intact and language grossly intact Estimated Intelligence: average estimated intelligence and + below average estimated intelligence Insight: + limited insight Judgement: + limited judgement Vital Signs (Past 24 Hours) Last Vital Signs Temp 36.8 C 02/10/19 06:46 Pulse 119 H 02/10/19 06:47 Resp 20 02/10/19 06:46 BP 108/78 02/10/19 06:47 Results & Data Current Inpatient Medications Current Inpatient Medications: Current Inpatient Medications Acetaminophen (Tylenol) 650 mg PO Q4H PRN PRN Reason: Headache or Minor Fever Stop: 03/08/19 16:16 Al Hydrox/Mg Hydrox/Simethicone (Maalox) 30 ml PO Q4H PRN PRN Reason: GI Upset Stop: 03/08/19 16:16 Albuterol (Ventolin Hfa) 2 puffs INH QID [facility] Stop: 03/08/19 16:59 Last Admin: 02/10/19 08:57 Dose: 2 puffs Documented by: Amlodipine Besylate (Norvasc) 5 mg PO DAILY [facility] Stop: 03/09/19 08:59 Last Admin: 02/10/19 09:01 Dose: 5 mg Documented by: Benzonatate (Tessalon Perle) 100 mg PO TID PRN PRN Reason: Cough Stop: 03/08/19 16:35 Chlorpromazine HCl (Thorazine) 50 mg PO TID [facility] Stop: 03/08/19 20:59 Last Admin: 02/10/19 09:02 Dose: 50 mg Documented by: Fluoxetine HCl (Prozac) 40 mg PO DAILY [facility] Stop: 03/09/19 08:59 Last Admin: 02/10/19 09:01 Dose: 40 mg Documented by: Gabapentin (Neurontin) 800 mg PO TID [facility] Stop: 03/08/19 20:59 Last Admin: 02/10/19 09:01 Dose: 800 mg Documented by: Hydroxyzine HCl (Vistaril) 50 mg PO HSZ PRN PRN Reason: Insomnia Stop: 03/08/19 16:16 Hydroxyzine HCl (Vistaril) 50 mg PO TID [facility] Stop: 03/08/19 20:59 Last Admin: 02/10/19 09:02 Dose: 50 mg Documented by: Labetalol HCl (Normodyne) 100 mg PO BID [facility] Stop: 03/08/19 20:59 Last Admin: 02/09/19 21:07 Dose: 100 mg Documented by: Levothyroxine Sodium (Synthroid) 200 mcg PO DAILYBB [facility] Stop: 03/09/19 07:59 Last Admin: 02/10/19 08:58 Dose: 200 mcg Documented by: Magnesium Hydroxide (Milk Of Magnesia) 30 ml PO DAILY PRN PRN Reason: Heartburn Stop: 03/08/19 16:16 Metformin HCl (Glucophage) 500 mg PO BIDM [facility] Stop: 03/10/19 17:44 Last Admin: 02/10/19 08:59 Dose: 500 mg Documented by: Brittany Ellipta: Non -Formulary Patient's Own Med 1 ea INH DAILY [facility] Stop: 03/09/19 08:59 Last Admin: 02/10/19 08:57 Dose: 1 puffs Documented by: Nystatin (Mycostatin) 1 appln EXT BID [facility] Stop: 03/08/19 20:59 Last Admin: 02/10/19 09:00 Dose: 1 appln Documented by: Olanzapine (Zyprexa) 20 mg PO HS [facility] Stop: 03/08/19 21:59 Last Admin: 02/09/19 21:06 Dose: 20 mg Documented by: Olanzapine (Zyprexa) 5 mg PO BID@0900,1600 [facility] Stop: 03/11/19 08:59 Last Admin: 02/10/19 09:04 Dose: 5 mg Documented by: Oxycodone/Acetaminophen (Percocet 5mg/325mg) 1 tab PO Q6H PRN PRN Reason: Pain Stop: 02/20/19 20:08 Last Admin: 02/10/19 08:55 Dose: 1 tab Documented by: Ropinirole HCl (Requip) 0.25 mg PO TID [facility] Stop: 03/08/19 20:59 Last Admin: 02/10/19 09:02 Dose: 0.25 mg Documented by: Sodium Chloride ([place] Nasal) 1 - 2 sprays NA PRN PRN PRN Reason: Nasal Dryness/Congestion Stop: 03/08/19 16:16 Trihexyphenidyl HCl (Artane) 5 mg PO QAM [facility] Stop: 03/11/19 08:59 Last Admin: 02/10/19 08:58 Dose: 5 mg Documented by: Vitamin D (Vitamin D3) 2,000 units PO DAILY [facility] Stop: 03/09/19 08:59 Last Admin: 02/10/19 09:03 Dose: 2,000 units Documented by: Post Discharge Appointments Primary Care Physician Name Of Family Doctor: Ana Paula Chatterjee [facility] Primary Care Provider Appointment Comment: [address] [place] [address] Psychiatrist Name of Psychiatrist: [facility] - Dr. Rascon (Telepsych) Psychiatrist's Date of Appointment with Psychiatrist: 02/14/19 Time of Appointment with Psychiatrist: 10:00 a.m. [facility] Name of Therapist: Jose Strategic Debriefing Officer Name of Strategic Debriefing Officer: Alex Love Phone Number for Strategic Debriefing Officer: Case Management Appointment Comment: [address] [place] [address] Contact Information Discharge Discharge Address: [address] [place] [address] [place] Allen [id number] CPT Code CPT Code 83911
[2019-02-10] MEDS: OLANZapine 20 MG TABLET PO SCH (21:07)
[2019-02-11] MEDS: OXYCODONE/ACETAMINOPHEN 5mg/325mg TAB PO PRN ×2 (06:24→21:00)
[2019-02-11] MEDS: LEVOTHYROXINE SODIUM 200 MCG TABLET PO SCH (08:11)
[2019-02-11 08:41] LABS: Estimated Average Glucose 154 mg/dl
[2019-02-11] MEDS: METFORMIN HCL 500 MG TAB PO SCH ×2 (08:57→17:19)
[2019-02-11] MEDS: TRIHEXYPHENIDYL HCL 2 MG TAB PO SCH (08:57)
[2019-02-11] MEDS: AMLODIPINE BESYLATE 5 MG TAB PO SCH (08:58)
[2019-02-11] MEDS: GABAPENTIN 800 MG TAB PO SCH ×3 (08:58→20:55)
[2019-02-11] MEDS: NYSTATIN POWDER 15GM BTL EXT SCH ×2 (08:58→20:54)
[2019-02-11] MEDS: CHLORPROMAZINE HCL 25 MG TABLET PO SCH ×3 (08:59→20:56)
[2019-02-11] MEDS: ROPINIROLE HCL 0.25 MG TABLET PO SCH ×3 (08:59→20:56)
[2019-02-11] MEDS: FLUOXETINE HCL 20 MG CAP PO SCH (08:59)
[2019-02-11] MEDS: CHOLECALCIFEROL 1,000 UNITS TAB PO SCH (09:00)
[2019-02-11] MEDS: ALBUTEROL HFA 8 GM INHALER INH SCH ×4 (09:00→20:56)
[2019-02-11] MEDS: ARNUITY ELLIPTA INH SCH (09:01)
[2019-02-11] MEDS: OLANZapine 5 MG TABLET PO SCH ×2 (09:01→16:01)
[2019-02-11] MEDS: LABETALOL HCL 100 MG TAB PO SCH ×2 (09:02→20:55)
--- NOTE | 2019-02-11 11:54 | Psychiatric Progress Note ---
Date of Service February 11, 2019 Impression / Recommendations Impression This 39-year-old woman with schizoaffective disorder, bipolar type, was admitted after she reported thoughts of wanting to be and was found to be at significant risk for suicide. She identifies the recent decision to temporarily suspend her right to have unsupervised visits with her young children as a precipitating event, but also acknowledges that she was decompensating prior to this, neglecting self-care (bathing, grooming, washing clothes, keeping the house clean), and lacking motivation, energy and frequent auditory hallucinations. She is improving with medication adjustments, and anticipate discharge tomorrow. (1) Suicidal ideation: 02/07 - Admitted to a locked inpatient behavioral health unit, on q15 minute safety checks - Encourage medication initiation/adjustments as indicated - Encourage participation in group and recreational therapies - Gather collateral information from outpatient providers - Suggest family meeting to involve outpatient supports in safety planning - Arrange appropriate aftercare 5 -The patient currently denies suicidal ideation. She reports that she was having passive thoughts of / wishes, but did not have any suicidal plan or intent. -The patient acknowledges that she sometimes uses suicide threats as a way of communicating her distress, and we discussed more effective ways of doing this. The patient seemed to be genuinely express understanding and described "shooting [herself] in the foot" in terms of her goal of being able to regain custody of her children. (2) Schizoaffective disorder, bipolar type: 02/07 - Medication history limited due to poor recall, we have requested records from outpatient psychiatrist as well as both recent inpatient facilities to gather collateral information - Reports improvement in hallucinations with increased dose olanzapine during last hospitalization - will continue current dosage; will order fasting labs as none on record - Continue chlorpromazine 50mg TID, fluoxetine 40mg, and hydroxyzine 50mg TID - Gather collateral information from outpatient supports and previous hospital records to guide further medication changes - Assist patient in processing recent stressors - Schedule family meeting with identified outpatient supports - Assist with development of healthy and effective coping strategies 5 -The patient notes that her auditory hallucinations have lessened since admission, but continue. -No delusional material was identified and the patient's thought content today. -Because of persistent auditory hallucinations, combined with which she describes as generalized anxietyrelieved in the evenings with her evening dose of Zyprexa (olanzapine) we will change her olanzapine regimen as follows: Olanzapine 5 mg p.o. twice daily and olanzapine 20 mg at bedtime. 02/10--improving, monitor am tachy 02/11 -symptoms improving, tolerating medications well. Coordinate with her outpatient clinicians and arrange aftercare. -Fasting labs reviewed for monitoring on an atypical antipsychotic: Triglycerides elevated to 91, cholesterol elevated 223. Fasting glucose elevated 135, hemoglobin A1c 7.0%, for an estimated average glucose of 154. Metformin started as below. (3) Right flank pain: 02/07 - Verbalized 10/10 right flank pain overnight, labs and visualization indicate gross hematuria, history of renal calculi. Hospitalist consult requested and appreciated - CT of abdomen and pelvis performed with no apparent urinary stones or hy dronephrosis - Percocet order by hospitalist service prn for ongoing pain - Monitor of ongoing hematuria, Urology consultation may be considered 02/08 - No pain complaint today. PRN pain medication will be continued. (4) Hypothyroidism: 02/07 - Per [place] [facility] labs: TSH elevated; Free T4 wnl - Continue home dose of Synthroid (5) Hypertension: 02/07 - Blood pressures stable - Continue home doses of amlodipine and labetalol (6) Restless leg syndrome: 02/07 - Continue home dose of Requip 02/08 -The patient also complains of daytime restlessness and had some trouble sitting still during her encounter with me today. I did not test for cogwheeling, but am wondering about akastisia/EPS. -Trial of Artane 5 mg daily. Material risks and anticipated benefits of Artane were reviewed with the patient, and she indicated understanding. -We are also changing her Zyprexa dose from 25 mg at bedtime to Zyprexa 20 mg at bedtime and 5 mg twice daily in the hopes that this will help address underlying generalized anxiety, as well as auditory hallucinations. (7) Elevated random blood glucose level: 02/07-The patient's fasting blood glucose level was elevated at 140. I met with the patient to advise her of this finding, provide information regarding elevated glucose levels, and make recommendations for addressing it. -The patient tells me that type 2 diabetes runs in her family and that she is "not surprised." -I am recommending that the patient began metformin 500 mg twice a day. Material risks and anticipated benefits of this medication were reviewed with the patient, and she indicated understanding. 02/11 -tolerating well, continue in the range follow-up with her PCP. Inventory Assets Strengths: extensive outpatient psychiatric support, support of mother to care for children Needs: improved condition to regain visitation with children, effective medication regimen Risk Factors Assessment Male: No : Yes Do You Have Access To A Gun?: No Health Problems: Yes Mental Health Diagnoses: Yes Substance Use Disorders: No Previous Attempt: No Family History of Suicide: No Previous Psychiatric Hospitalization: Yes Hopelessness: Yes Smoker: No Protective Factors Assessment [employer] Beliefs: No : No Responsible for Young Children: Yes (children living with their grandmother recently) Employed: No Stable Relationships: No Supportive Family: Yes (though also a large stressor) Good Rapport with Provider: Yes Interval History Identifying Information SIMON KIM is a 39-year-old F who currently lives in [place], [place]. Pt was accepted from [facility]. Pt has a history of schizoaffective disorder, bipolar type and generalized anxiety disorder, and was admitted on 02/06/19 16:45 on a 201 voluntary commitment for worsening depression, and auditory hallucinations prompting patient to end her life. Chief Complaint "A lot better". Review of Systems Sleep Information Total Hours of Sleep: 7.5 Sleep Comments: soft to moderate snoring noted Meal Information Percent Meal Consumed - Breakfast: 100 Percent Meal Consumed - Lunch: 100 Percent Meal Consumed - Dinner: 100 Subjective Subjective Patient was seen & assessed and interval progress reviewed with Treatment Team. Staff report she is attending groups and participating, eating well, and showering. She is reporting improved mood, and thinks her medications are helping. On my assessment, she reports mood is improving from admission, and she feels safe here. She denies SI and HI, and denies AH so far today. She is hopeful for discharge tomorrow. She denies side effects to medications. Physical Exam Mental Examination Morbidly obese female appearing older than her stated age. Casually dressed, malodorous. Lying in bed in NAD reading. Mood is "getting better," and affect is blunted but stable and appropriate. Speech is nonspontaneous, normal rate, volume, and tone. Thoughts are goal-directed, concrete. Denies SI, HI, hallucinations, paranoia, and no delusions evident. Alert and oriented. Level of intelligence estimated to be below average. Insight and judgment are fair. Vital Signs (Past 24 Hours) Last Vital Signs Temp 36.7 C 02/11/19 06:42 Pulse 106 H 02/11/19 09:12 Resp 18 02/11/19 06:42 BP 133/93 02/11/19 09:12 Results & Data Laboratory Results Laboratory Results - last 24 hr 02/11/19 02/11/19 06:41 06:41 Fasting Glucose 135 H Estimat Average Glucose 154 Hemoglobin A1c 7.0 H Current Inpatient Medications Current Inpatient Medications: Current Inpatient Medications Acetaminophen (Tylenol) 650 mg PO Q4H PRN PRN Reason: Headache or Minor Fever Stop: 03/08/19 16:16 Last Admin: 02/10/19 10:13 Dose: 650 mg Documented by: Al Hydrox/Mg Hydrox/Simethicone (Maalox) 30 ml PO Q4H PRN PRN Reason: GI Upset Stop: 03/08/19 16:16 Albuterol (Ventolin Hfa) 2 puffs INH QID [facility] Stop: 03/08/19 16:59 Last Admin: 02/11/19 09:00 Dose: 2 puffs Documented by: Amlodipine Besylate (Norvasc) 5 mg PO DAILY [facility] Stop: 03/09/19 08:59 Last Admin: 02/11/19 08:58 Dose: 5 mg Documented by: Benzonatate (Tessalon Perle) 100 mg PO TID PRN PRN Reason: Cough Stop: 03/08/19 16:35 Chlorpromazine HCl (Thorazine) 50 mg PO TID [facility] Stop: 03/08/19 20:59 Last Admin: 02/11/19 08:59 Dose: 50 mg Documented by: Fluoxetine HCl (Prozac) 40 mg PO DAILY [facility] Stop: 03/09/19 08:59 Last Admin: 02/11/19 08:59 Dose: 40 mg Documented by: Gabapentin (Neurontin) 800 mg PO TID [facility] Stop: 03/08/19 20:59 Last Admin: 02/11/19 08:58 Dose: 800 mg Documented by: Hydroxyzine HCl (Vistaril) 50 mg PO HSZ PRN PRN Reason: Insomnia Stop: 03/08/19 16:16 Hydroxyzine HCl (Vistaril) 50 mg PO TID [facility] Stop: 03/08/19 20:59 Last Admin: 02/11/19 09:00 Dose: 50 mg Documented by: Labetalol HCl (Normodyne) 100 mg PO BID [facility] Stop: 03/08/19 20:59 Last Admin: 02/11/19 09:02 Dose: 100 mg Documented by: Levothyroxine Sodium (Synthroid) 200 mcg PO DAILYBB [facility] Stop: 03/09/19 07:59 Last Admin: 02/11/19 08:11 Dose: 200 mcg Documented by: Magnesium Hydroxide (Milk Of Magnesia) 30 ml PO DAILY PRN PRN Reason: Heartburn Stop: 03/08/19 16:16 Metformin HCl (Glucophage) 500 mg PO BIDM [facility] Stop: 03/10/19 17:44 Last Admin: 02/11/19 08:57 Dose: 500 mg Documented by: Brittany Ellipta: Non -Formulary Patient's Own Med 1 ea INH DAILY [facility] Stop: 03/09/19 08:59 Last Admin: 02/11/19 09:01 Dose: 1 puffs Documented by: Nystatin (Mycostatin) 1 appln EXT BID [facility] Stop: 03/08/19 20:59 Last Admin: 02/11/19 08:58 Dose: 1 appln Documented by: Olanzapine (Zyprexa) 20 mg PO HS [facility] Stop: 03/08/19 21:59 Last Admin: 02/10/19 21:07 Dose: 20 mg Documented by: Olanzapine (Zyprexa) 5 mg PO BID@0900,1600 [facility] Stop: 03/11/19 08:59 Last Admin: 02/11/19 09:01 Dose: 5 mg Documented by: Oxycodone/Acetaminophen (Percocet 5mg/325mg) 1 tab PO Q6H PRN PRN Reason: Pain Stop: 02/20/19 20:08 Last Admin: 02/11/19 06:24 Dose: 1 tab Documented by: Ropinirole HCl (Requip) 0.25 mg PO TID [facility] Stop: 03/08/19 20:59 Last Admin: 02/11/19 08:59 Dose: 0.25 mg Documented by: Sodium Chloride ([place] Nasal) 1 - 2 sprays NA PRN PRN PRN Reason: Nasal Dryness/Congestion Stop: 03/08/19 16:16 Trihexyphenidyl HCl (Artane) 5 mg PO QAM [facility] Stop: 03/11/19 08:59 Last Admin: 02/11/19 08:57 Dose: 5 mg Documented by: Vitamin D (Vitamin D3) 2,000 units PO DAILY [facility] Stop: 03/09/19 08:59 Last Admin: 02/11/19 09:00 Dose: 2,000 units Documented by: Post Discharge Appointments Primary Care Physician Name Of Family Doctor: [place] Primary Care Provider Appointment Comment: [address] [place] [address] Psychiatrist Name of Psychiatrist: [facility] - Dr. Rascon (Telepsych) Psychiatrist's Date of Appointment with Psychiatrist: 02/14/19 Time of Appointment with Psychiatrist: 10:00 a.m. [facility] App[facility]ment [facility] Name of Therapist: Jose [employer] Name of Plug And Mold Finisher: Alex Love Phone Number for [employer] And [employer]isher: Case Management Appointment Comment: [address] [place], [place] [address] [address] Contact Information Discharge Discharge Address: [address] [place] [address] JACKIE Allen59 CPT Code CPT Code 42324
[2019-02-11] MEDS: OLANZapine 20 MG TABLET PO SCH (20:57)
[2019-02-12] MEDS: ARNUITY ELLIPTA INH SCH (08:07)
[2019-02-12] MEDS: ALBUTEROL HFA 8 GM INHALER INH SCH (08:07)
[2019-02-12] MEDS: LEVOTHYROXINE SODIUM 200 MCG TABLET PO SCH (08:08)
[2019-02-12] MEDS: TRIHEXYPHENIDYL HCL 2 MG TAB PO SCH (08:09)
[2019-02-12] MEDS: METFORMIN HCL 500 MG TAB PO SCH (08:10)
[2019-02-12] MEDS: NYSTATIN POWDER 15GM BTL EXT SCH (08:11)
[2019-02-12] MEDS: GABAPENTIN 800 MG TAB PO SCH (08:11)
[2019-02-12] MEDS: FLUOXETINE HCL 20 MG CAP PO SCH (08:12)
[2019-02-12] MEDS: AMLODIPINE BESYLATE 5 MG TAB PO SCH (08:12)
[2019-02-12] MEDS: ROPINIROLE HCL 0.25 MG TABLET PO SCH (08:12)
[2019-02-12] MEDS: CHLORPROMAZINE HCL 25 MG TABLET PO SCH (08:13)
[2019-02-12] MEDS: OLANZapine 5 MG TABLET PO SCH (08:14)
[2019-02-12] MEDS: CHOLECALCIFEROL 1,000 UNITS TAB PO SCH (08:14)
[2019-02-12] MEDS: OXYCODONE/ACETAMINOPHEN 5mg/325mg TAB PO PRN (08:15)
[2019-02-12] MEDS: LABETALOL HCL 100 MG TAB PO SCH (08:15)
--- NOTE | 2019-02-12 09:26 | Discharge Summary ---
Date of Service February 12, 2019 History of Present Illness Yasmin Hill is a 39-year-old female voluntarily admitted for inpatient psychiatric treatment. Patient presented to the [facility] ED and was accepted at our facility after a bed search was completed. It was felt inpatient admission was necessary due to patient's reports of worsening depressive symptoms, auditory and visual hallucinations, and suicidal ideation. The patient reports recent stressors of limited visitation with HER-2 daughters, and the recent of her grandmother. Patient reports a psychiatric history of schizoaffective disorder, bipolar type and anxiety. Recent inpatient hospitalizations include a stay at [facility] in 12/2018 followed by an inpatient admission at [facility] in 01/2019, 3 weeks prior to her current admission. Patient reports current outpatient psychiatrist, zaynab montanez, and a therapist she sees while attending psych rehab 3-4 times a week. Patient is limited in her understanding of medication changes that have been made over the last 2 hospital admissions. Patient reports specific stressor of "losing my kids." She shares with this provider that her mother has had legal custody of her two daughters for the past 2 years. From the patient's reports, it appears that the patient had visitation with her daughters for 2-hour periods after school, but these have recently been changed to supervised visitations. The patient reports this is because her daug hters had shared with her mother that she had been falling asleep during their visits, and "there is no food in the house." The patient denies these claims and is frustrated and saddened by the fact that she has limited time with her children. She does report to this provider that she can see her children with supervised visitation, "but I do not like my step dad, and the only other person who can supervise is my ex-." These visitation changes have been occurring over the last week which correlates with patient's reported worsening psychiatric symptoms. Patient states she has been experiencing low mood and low energy for the past few weeks, and feels hopeless due to these recent stressors. She shares with this provider that she does "hear voices, but I cannot make out what they say." She follows up the statement by saying, "sometimes they tell me 'just kill yourself'." Patient also reports visual illusions of "shadowy figures" and "writing on the wall right there, written and read, 'just kill yourself'." Patient initially states that these "hallucinations" occur as she is entering and coming out of sleep, but then later states she will hear them throughout the day as well. Patient reports depressive symptoms for the past 2 months, including low energy, fatigue, difficulty concentrating, difficulty falling asleep, periods of hopelessness, and suicidal ideation. Patient states that no plan has developed and at this time she does not have intent to follow through with the prompting to end her life. Patient does report anxiety primarily related to situations i nvolving her children. She also states that her mother is a significant stressor as, "everything she says bothers me." Patient reports that her mother has told her that she is "all doped up" and feels that she is on too many medications. The patient states her admission to [facility] in December was due to her following through with his and her mother's advice to discontinue her medications. Patient initially denied symptoms consistent with bipolar disorder, than later reported a "manic stage" about 1 year ago. The stages are characterized by "spending money when there is no money to spend" and getting by on about 2 hours of sleep while still feeling significant energy and productivity. It is within the stage that the patient had written bad checks, for which she is now on probation. The patient states these episodes last about 4-5 days in end with her feeling "weak" and with an attitude of "I do not care". Pt denies HI, SIB, paranoia, OCD, PTSD, eating disorder, and other specific psychiatric symptoms. Of note, many questions had to be repeated for the patient as she is consistently dozing off during our interview. She reports a diagnosis of sleep apnea, but states "I had a study done and they said I didn't need any CPAP or anything." History is limited due to patient's minimal recall, and ongoing fatigue. Physical Exam Mental Examination Morbidly obese WF appearing older than her stated age. Casually dressed, limited hygiene, adequate grooming. Seated in NAD. Calm, cooperative and pleasant. Alert and oriented. Good eye contact, no abnormal movements. Speech is normal rate, volume and tone. Mood is "pretty good," and affect is euthymic and stable. Thoughts are goal directed, and denies SI, HI, AVH and paranoia. Memory, attention and language are grossly intact. Insight and judgement are fair. Vital Signs (Past 24 Hours) Last Vital Signs Temp 36.6 C 02/12/19 07:57 Pulse 78 02/12/19 07:57 Resp 18 02/12/19 07:57 BP 104/67 02/12/19 07:57 Principal Diagnosis Schizoaffective disorder, bipolar type Morbid obesity Elevated fasting glucose Psychiatric Data Patient was hospitalized on our unit for 6 days. A hospitalist consult was requested on admission due to complaints of right flank pain and hematuria. CT of abdomen and pelvis was negative for urinary stones and hydronephrosis, UA showed >30 red blood cells, 5-10 white blood cells, > 30 epithelial cells, 1+ bacteria, trace ketones, and elevated specific gravity. Urine culture showed more than 3 types of organisms present, all high counts, mixed probable skin alfonzo. CBC on 02/06/2019 showed 11.25 white blood cells, and slightly elevated RDW, but otherwise normal; repeat CBC on 02/08/2019 showed normal white blood cell count. She reported dysuria and the hospitalist prescribed cephalexin, which was stopped 02/10/2019. Outpatient follow-up was recommended, with urological consultation. On admission, she was continued on her home doses of chlorpromazine, fluoxetine, hydroxyzine, gabapentin, ropinirole, and olanzapine, as well as medications for her multiple medical conditions. She continued to report distressing auditory hallucinations, so olanzapine was increased to 5 mg twice daily and 20 mg nightly. Auditory hallucinations resolved, but she reported restlessness, and trihexyphenidyl was added for akathisia. Outpatient records were received and reviewed. Fasting lipid profile and glucose were checked for monitoring on an atypical antipsychotic and showed elevated triglycerides, cholesterol, fasting glucose, and hemoglobin A1c. She was started on metformin. Day of Discharge Assessment The patient reports her mood is "a lot better," and she is looking forward to discharge today and returning home. She denies suicidal thoughts, auditory hallucinations, and any safety concerns with discharge. She denies side effects to medications, and we reviewed all of her new medications/adjustments, and recommendations for follow-up. She is able to review her discharge safety plan, including calling her mother, political science chair, or the crisis line. She reports good sleep and appetite, and says she is performing ADLs independently. Transition of Care Transition Of Care Record: was reviewed with the patient Advance Directives Advance Directives Information Provided: Yes Advance Directives: No Mental Health Advance Directive: No Advance Directives on File: No Living Will: No Power of Volunteer Patient Representative: No Advance Directives Reason:: Declines as Mental Health Visit. Risk Factors Assessment Risk factors were mitigated by admission to the inpatient unit, adjusting medications to target mood and psychotic symptoms, monitoring for medication side effects, adjusting medications for medical conditions, psychoeducation about her diagnoses and treatment recommendations, coordination of care with her outpatient mental health care providers, involving her in groups and therapy, working on healthy coping skills and a discharge safety plan. Patient has demonstrated improvement in mood, psychotic symptoms, and suicidal thoughts, is performing ADLs independently, eating and sleeping well, taking medications as prescribed and tolerating them without difficulty, and reporting resolution in auditory hallucinations and suicidal thoughts. She is requesting discharge, and as she is no longer at acute risk of harm to herself, can be managed as an outpatient at this time. Male: No : Yes Do You Have Access To A Gun?: No Health Problems: Yes Mental Health Diagnoses: Yes Substance Use Disorders: No Previous Attempt: No Family History of Suicide: No Previous Psychiatric Hospitalization: Yes Hopelessness: Yes Smoker: No Protective Factors Assessment Yarsani Beliefs: No : No Responsible for Young Children: Yes (children living with their grandmother recently) Employed: No Stable Relationships: No Supportive Family: Yes (though also a large stressor) Good Rapport with Provider: Yes Discharge Data Consultations 02/06/19 19:51 Consult Hospitalist Routine Lab Results 02/06/19 02/06/19 02/06/19 20:21 20:21 21:30 WBC 11.25 H RBC 4.89 Hgb 13.6 Hct 40.6 MCV 83.0 MCH 27.8 MCHC 33.5 RDW Std Deviation 44.4 RDW Coeff of Val 14.6 H Plt Count 352 MPV 9.4 Immature Gran % (Auto) 0.9 Neut % (Auto) 74.8 Lymph % (Auto) 18.0 [place] % (Auto) 6.0 Eos % (Auto) 0.1 Baso % (Auto) 0.2 Immature Gran # (Auto) 0.10 H Neut # (Auto) 8.42 H Lymph # (Auto) 2.03 [place] # (Auto) 0.67 H Eos # (Auto) 0.01 Baso # (Auto) 0.02 Sodium 140 Potassium 4.3 Chloride 105 Carbon Dioxide 27 Anion Gap 8.0 BUN 23 H Creatinine 1.20 Est Cr Clr Drug Dosing 100.1 Est GFR ( Amer) 65.9 Est GFR (Non-Af Amer) 56.9 BUN/Creatinine Ratio 18.8 Glucose 151 H Fasting Glucose Estimat Average Glucose Hemoglobin A1c Calcium 9.6 Total Bilirubin 0.3 AST 28 ALT 48 Alkaline Phosphatase 101 Total Protein 8.8 H Albumin 3.8 Globulin 5.0 H Albumin/Globulin Ratio 0.8 L Triglycerides Cholesterol LDL Cholesterol, Calc VLDL Cholesterol, Calc HDL Cholesterol Cholesterol/HDL Ratio Urine Color Yellow Urine Appearance Cloudy H Urine pH 6.0 Ur Specific [place] 1.033 H Urine Protein Negative Urine Glucose (UA) Negative Urine Ketones Trace H Urine Blood 3+ H Urine Nitrite Negative Urine Bilirubin Negative Urine Urobilinogen Negative Ur Leukocyte Esterase Negative Urine WBC (Auto) 5-10 H Urine RBC (Auto) >30 H U Hyaline Cast (Auto) 1-5 U Epithel Cells (Auto) >30 H Urine Bacteria (Auto) 1+ H 02/08/19 02/08/19 02/11/19 07:16 07:16 06:41 WBC 10.25 RBC 4.71 Hgb 12.9 Hct 40.0 MCV 84.9 MCH 27.4 MCHC 32.3 RDW Std Deviation 45.4 RDW Coeff of Val 14.6 H Plt Count 287 MPV 9.2 Immature Gran % (Auto) 1.2 Neut % (Auto) 60.1 Lymph % (Auto) 25.9 [place] % (Auto) 9.3 Eos % (Auto) 3.3 Baso % (Auto) 0.2 Immature Gran # (Auto) 0.12 H Neut # (Auto) 6.17 Lymph # (Auto) 2.65 [place] # (Auto) 0.95 H Eos # (Auto) 0.34 Baso # (Auto) 0.02 Sodium Potassium Chloride Carbon Dioxide Anion Gap BUN Creatinine Est Cr Clr Drug Dosing Est GFR ( Amer) Est GFR (Non-Af Amer) BUN/Creatinine Ratio Glucose Fasting Glucose 140 H 135 H Estimat Average Glucose Hemoglobin A1c Calcium Total Bilirubin AST ALT Alkaline Phosphatase Total Protein Albumin Globulin Albumin/Globulin Ratio Triglycerides 291 H Cholesterol 223 H LDL Cholesterol, Calc 132 VLDL Cholesterol, Calc 58 HDL Cholesterol 33 Cholesterol/HDL Ratio 7 Urine Color Urine Appearance Urine pH Ur Specific [place] Urine Protein Urine Glucose (UA) Urine Ketones Urine Blood Urine Nitrite Urine Bilirubin Urine Urobilinogen Ur Leukocyte Esterase Urine WBC (Auto) Urine RBC (Auto) U Hyaline Cast (Auto) U Epithel Cells (Auto) Urine Bacteria (Auto) 02/11/19 06:41 WBC RBC Hgb Hct MCV MCH MCHC RDW Std Deviation RDW Coeff of Val Plt Count MPV Immature Gran % (Auto) Neut % (Auto) Lymph % (Auto) [place] % (Auto) Eos % (Auto) Baso % (Auto) Immature Gran # (Auto) Neut # (Auto) Lymph # (Auto) [place] # (Auto) Eos # (Auto) Baso # (Auto) Sodium Potassium Chloride Carbon Dioxide Anion Gap BUN Creatinine Est Cr Clr Drug Dosing Est GFR ( Amer) Est GFR (Non-Af Amer) BUN/Creatinine Ratio Glucose Fasting Glucose Estimat Average Glucose 154 Hemoglobin A1c 7.0 H Calcium Total Bilirubin AST ALT Alkaline Phosphatase Total Protein Albumin Globulin Albumin/Globulin Ratio Triglycerides Cholesterol LDL Cholesterol, Calc VLDL Cholesterol, Calc HDL Cholesterol Cholesterol/HDL Ratio Urine Color Urine Appearance Urine pH Ur Specific [place] Urine Protein Urine Glucose (UA) Urine Ketones Urine Blood Urine Nitrite Urine Bilirubin Urine Urobilinogen Ur Leukocyte Esterase Urine WBC (Auto) Urine RBC (Auto) U Hyaline Cast (Auto) U Epithel Cells (Auto) Urine Bacteria (Auto) Hospital Course (1) Suicidal ideation: 02/07 - Admitted to a locked inpatient behavioral health unit, on q15 minute safety checks - Encourage medication initiation/adjustments as indicated - Encourage participation in group and recreational therapies - Gather collateral information from outpatient providers - Suggest family meeting to involve outpatient supports in safety planning - Arrange appropriate aftercare 02/08 -The patient currently denies suicidal ideation. She reports that she was having passive thoughts of / wishes, but did not have any suicidal plan or intent. -The patient acknowledges that she sometimes uses suicide threats as a way of communicating her distress, and we discussed more effective ways of doing this. The patient seemed to be genuinely express understanding and described "shooting [herself] in the foot" in terms of her goal of being able to regain custody of her children. (2) Schizoaffective disorder, bipolar type: 02/07 - Medication history limited due to poor recall, we have requested records from outpatient psychiatrist as well as both recent inpatient facilities to gather collateral information - Reports improvement in hallucinations with increased dose olanzapine during last hospitalization - will continue current dosage; will order fasting labs as none on record - Continue chlorpromazine 50mg TID, fluoxetine 40mg, and hydroxyzine 50mg TID - Gather collateral information from outpatient supports and previous hospital records to guide further medication changes - Assist patient in processing recent stressors - Schedule family meeting with identified outpatient supports - Assist with development of healthy and effective coping strategies 02/08 -The patient notes that her auditory hallucinations have lessened since admission, but continue. -No delusional material was identified and the patient's thought content today. -Because of persistent auditory hallucinations, combined with which she describes as generalized anxietyrelieved in the evenings with her evening dose of Zyprexa (olanzapine) we will change her olanzapine regimen as follows: Olanzapine 5 mg p.o. twice daily and olanzapine 20 mg at bedtime. 02/10--improving, monitor am tachy 02/11 -symptoms improving, tolerating medications well. Coordinate with her outpatient clinicians and arrange aftercare. -Fasting labs reviewed for monitoring on an atypical antipsychotic: Triglycerides elevated to 91, cholesterol elevated 223. Fasting glucose elevated 135, hemoglobin A1c 7.0%, for an estimated average glucose of 154. Metformin started as below. (3) Right flank pain: 02/07 - Verbalized 10/10 right flank pain overnight, labs and visualization indicate gross hematuria, history of renal calculi. Hospitalist consult requested and appreciated - CT of abdomen and pelvis performed with no apparent urinary stones or hydronephrosis - Percocet order by hospitalist service prn for ongoing pain - Monitor of ongoing hematuria, Urology consultation may be considered 02/08 - No pain complaint today. PRN pain medication will be continued. (4) Hypothyroidism: 02/07 - Per [facility] ED labs: TSH elevated; Free T4 wnl - Continue home dose of Synthroid (5) Hypertension: 02/07 - Blood pressures stable - Continue home doses of amlodipine and labetalol (6) Restless leg syndrome: 02/07 - Continue home dose of Requip 02/08 -The patient also complains of daytime restlessness and had some trouble sitting still during her encounter with me today. I did not test for cogwheeling, but am wondering about akastisia/EPS. -Trial of Artane 5 mg daily. Material risks and anticipated benefits of Artane were reviewed with the patient, and she indicated understanding. -We are also changing her Zyprexa dose from 25 mg at bedtime to Zyprexa 20 mg at bedtime and 5 mg twice daily in the hopes that this will help address underlying generalized anxiety, as well as auditory hallucinations. (7) Elevated random blood glucose level: 02/07-The patient's fasting blood glucose level was elevated at 140. I met with the patient to advise her of this finding, provide information regarding elevated glucose levels, and make recommendations for addressing it. -The patient tells me that type 2 diabetes runs in her family and that she is "not surprised." -I am recommending that the patient began metformin 500 mg twice a day. Material risks and anticipated benefits of this medication were reviewed with the patient, and she indicated understanding. 02/11 -tolerating well, continue in the range follow-up with her PCP. Post Discharge Appointments Primary Care Physician Name [facility] Doctor[facility] Provider Appointment Comment: [place] [id number] Psychiatrist Name of Psychiatrist: [facility], 1928–1983 - [address]. Rascon (Telepsych) Psychiatrist's Date of Appointment with Psychiatrist: 02/14/19 Time of Appointment with Psychiatrist: 10:00 a.m. [facility] Name of Therapist: Jose Cheese Grader Name of Cheese Grader: Alex Love Phone Number for Cheese Grader: Case Management Appointment Comment[facility] [address] [facility] [place] [address] Contact Information Discharge Discharge Address: [address] [place] [address] JACKIE Allen [id number] Discharge Plan Discharge Items Patient Disposition: Home - Self-Care Reason For Visit: SCHIZOAFFECTIVE DISORDER Discharge Diagnosis: Schizoaffective disorder, bipolar type Discharge Goals: Decrease discomfort, Improve disease control, Improve function, Improve nutritional status, Learn about illness and Therapeutic intervention Activity: Per 'Additional Instructions' section Non-emergency contact: Primary Care Provider, Psychiatrist, Therapist and Curtain Cutter Hand Call non-emergency contact if: you have any medication questions and your symptoms worsen Follow-up/Referrals: Majo Bishop MD [Primary Care Provider] - Diet: Regular Addtl Provider Instructions: SPECIAL CARE INSTRUCTIONS: 1. Follow through with your scheduled aftercare appointments. If unable to keep an appointment, please call to reschedule. 2. Take your medication only as prescribed. Medication should not be changed or stopped without the approval of your doctor. In the event of worsening symptoms or concerns about side effects, contact your doctor immediately. 3. Utilize new healthy coping skills, anger management skills, and stress management skills learned during your hospitalization. Journal feelings and process them with a support person. Identify stressors or situations that may result in relapse, deterioration or inappropriate behaviors and develop a plan to deal with those issues. 4. If your coping skills are ineffective and you are in crisis, contact your outpatient providers for direction. If unable to reach your providers, please call the CAN HELP LINE AT or go to the closest Emergency Room. 5. Avoid alcohol and un-prescribed drugs. 6. You have been provided with the Mental Health Advance Directives Pamphlet for your review. AFTERCARE APPOINTMENTS: * Please call your insurance company prior to your scheduled appointment to confirm your aftercare providers are covered. Take your insurance information to your appointments. WHO TO CALL AND WHEN: Medical Emergencies: For questions or emergencies related to your hospital stay, please contact the Inpatient Behavioral Health Unit at [phone]. A cut off saw operator metal is on-call 29/05 for the Behavioral Health Unit for emergencies At any time you feel your situation is an emergency, you may also call 911 immediately. Your Doctors Instructions noted above were prepared by provider Aleyda Trejo MD. Prescriptions: New metformin [Glucophage] 500 mg Tablet 500 mg PO BIDM Qty: 60 RF: 0 trihexyphenidyl 2 mg Tablet 5 mg PO QAM Qty: 30 RF: 0 Continued fluoxetine [Prozac] 40 mg Capsule 40 mg PO DAILY RF: 0 hydroxyzine HCl 50 mg Tablet 50 mg PO TID RF: 0 gabapentin [Neurontin] 800 mg Tablet 800 mg PO TID RF: 0 benzonatate [Tessalon Perles] 100 mg Capsule 100 mg PO TID PRN (Reason: Cough) RF: 0 levothyroxine 200 mcg Tablet 200 mcg PO DAILY RF: 0 labetalol 100 mg Tablet 100 mg PO BID RF: 0 albuterol sulfate [Ventolin HFA] 90 mcg/actuation Hfa Aerosol Inhaler 2 puff INHALATION QID RF: 0 Flovent Diskus 250 mcg/actuation Blister With Device 1 inh INHALATION BID RF: 0 olanzapine [Zyprexa] 20 mg Tablet 20 mg PO HS RF: 0 chlorpromazine 50 mg Tablet 50 mg PO TID RF: 0 melatonin 5 mg Tablet 5 mg PO HS PRN (Reason: Sleep) RF: 0 cholecalciferol (vitamin D3) 2,000 unit Capsule 2,000 unit PO DAILY RF: 0 Requip 0.25 mg PO TID RF: 0 nystatin 100,000 applic topical BID RF: 0 Changed olanzapine [Zyprexa] 5 mg Tablet 5 mg PO BID Qty: 1 RF: 0 No Action amlodipine 5 mg Tablet 5 mg PO DAILY RF: 0 Stand-Alone Forms: [facility] Discharge Orders: Discharge Order (Routine); Ordered 02/12/19 Ordered By: Aleyda Trejo Admission Data Admit Date/Time: 02/06/19 16:45 Attending Provider: Aleyda Trejo Admit Provider: Aleyda Trejo Primary Care Provider: Majo Bishop Other Providers: Ann-Marie Taylor Rajendra P Service: Psychiatry Other Interventions: Discharge Summary Assessment (RN) Last Done: 02/12/19 07:57 PSY Interdisciplinary Discharge Planning Last Done: 02/11/19 15:48 Pending Studies at Discharge: No
== END 2019-02-12 10:20 | disposition home or self-care (01) | DRG 885 ==
LOC: 3S 16:45